=== PATIENT | female | born 1990 | race Caucasian/White ===

== ENCOUNTER 2017-04-27 14:22 | Inpatient (IN) | payer OTHER ==
[2017-04-27] MEDS ORDERED: Acetaminophen 500 MG TAB PO PRN (14:26)
[2017-04-27] MEDS ORDERED: Promethazine HCl 25 MG/ML VIAL IM PRN (14:26)
[2017-04-27] MEDS ORDERED: Ondansetron HCl/PF 4 MG/2 ML Vial IVP PRN (14:26)
[2017-04-27] MEDS ORDERED: Albuterol Sulfate 2.5 mg/3 ml Neb NEB PRN (14:44)
[2017-04-27 14:56] LABS: Hematocrit 41.1 % (36.0-47.0); Mean Platelet Volume 6.8 fL (7.4-10.4); Red Blood Cell (RBC) Count 4.15 mill/uL (4.20-5.40)
[2017-04-27 15:11] VITALS: BMI 36.4
--- NOTE | 2017-04-27 15:21 | ULT ---
ULTRASOUND BIOPHYSICAL PROFILE: HISTORY: History of previa, bleeding, growth. COMPARISON: None. FINDINGS: Real-time zapata scale and color evaluation of the gravid uterus is performed with a transabdominal ap proach. Single viable intrauterine . heart rate documented at 149 b.p.m. Amniotic fluid ind ex is 8 cm. The score for biophysical profile is 2 for tone, 2 for breathing, 2 for move ments, and 2 for amniotic fluid. position is breech and the placenta is anterior. The tip of the placenta is separate from the cervix. IMPRESSION: 1. Biophysical profile score of 8/8. 2. Amniotic fluid index 8 cm, lower limits of normal. POS: [facility]
[2017-04-27] MEDS ORDERED: FLU VACC QS2017-18 36 mo. & older 0.5 ML SYRINGE IM ONE (16:15)
[2017-04-27] MEDS: Lactated Ringer's 1,000 ML IV SCH (16:25)
--- NOTE | 2017-04-27 17:03 | PDOC.LDHP ---
Labor and Delivery H&P Chief complaint: other (bleeding) HPI: 26 y/o at 27w2d, patient of Dr. Chang, transferred from [facility] with vaginal bleeding. Patient reports that she soaked a pad and came in for evaluation. She had a known marginal previa but was noted to be resolved on recent ultrasound. Is having some cramping with her bleeding. Bleeding has decreased since her arrival. Has a complicated medical history and received Celestone at 24 weeks. Was scheduled to receive second round this week. Denies LOF or decreased FM. ROS neg for HEENT, CV, pulm, GI, , neuro, psych, skin, musculoskeletal, or constitutional symptoms other than mentioned above. OB History Details: 2 prior c/s. Most recent done at 33 weeks for PPROM. Current complications: other (see PMHx) Past Medical History: 1. Systemic Lupus Erythematosis (followed by Dr. Borrego - rheumatology) 2. Ideopathic pulmonary fibrosis (followed by Dr. Galvan - Pulmonology); 30% lung capacity 3. Asthma 4. Depression, hx depression Previous surgical history: low tranverse CS (x2), other (lung biopsy) Allergies/Adverse Reactions: Allergies Allergy/AdvReac Type Severity Reaction Status Date / Time No Known Allergies Allergy Unverified 04/27/17 14:40 Social history: none - Physical Exam Vital signs reviewed and normal: yes Abnormal vital signs: mild tachypnea General: NAD, resting Heart: RRR Lungs: CTAB Abdomen: gravid Extremeties: no edema FHT: category 1 (150s, mod variability, + accels, no decels) [place] contractions every: None - Vaginal Exam cm dilated: 0 (Per Dr. Irving) - OB Labs Blood type: A RH: positive RPR: negative HEPSAg: negative - Assessment 26 y/o at 27w2d with complicated medical history and vaginal bleeding. US shows breech fetus with anterior placenta, no previa. Normal growth and GEORGE 8cm. - Plan Plan: admit to L&D -: Will monitor with pad counts and continue home medications. Repeat steroids ordered. If stable, can d/c home tomorrow. T&S ordered.
[2017-04-27] MEDS: Betamet Acet/Betamet Na Ph 30 MG/5 ML VIAL IM SCH (17:12)
[2017-04-27] MEDS: Hydroxychloroquine Sulfate 200 MG TAB PO SCH (17:18)
[2017-04-27] MEDS: predniSONE 20 MG TAB PO SCH (17:18)
[2017-04-27] MEDS: azaTHIOprine 50 MG TAB PO SCH (17:21)
[2017-04-28] MEDS: Lactated Ringer's 1,000 ML IV SCH (01:00)
[2017-04-28 07:50] VITALS: TEMP 98.6
[2017-04-28] MEDS ORDERED: Prenatal Vitamin 1 TAB PO SCH (09:00)
--- NOTE | 2017-04-28 09:03 | PDOC.EVN ---
Event Note - Event Note Event Note: Pt seen at 0951 S: positive FM, minimal old spotting this AM on pad, cramping less O: Vital Signs (12 hours) Temp Pulse Resp Pulse Ox 04/28/17 07:42 98.6 F 91 32 H 99 Weight Weight 226 lb Laboratory Results - last 24 hr 04/27/17 04/27/17 04/27/17 14:50 14:50 14:50 WBC 11.0 H RBC 4.15 L Hgb 13.6 Hct 41.1 MCV 99.1 H MCH 32.8 H MCHC 33.0 RDW 14.4 Plt Count 193 MPV 6.8 L Neutrophils % Lymphocytes % Monocytes % Eosinophils % Basophils % Neutrophils # Lymphocytes # Monocytes # Eosinophils # Basophils # Fibrinogen Syphilis IgG/IgM Ab Non-Reactive Hep Bs Antigen Non-Reactive Blood Type Antibody Screen Mother's Rh Status KB % Cells KB Cell Volume 04/27/17 04/28/17 04/28/17 14:50 10:36 10:36 WBC 10.4 RBC 3.96 L Hgb 12.8 Hct 39.3 MCV 99.3 H MCH 32.3 H MCHC 32.5 RDW 14.1 Plt Count 200 MPV 7.0 L Neutrophils % 88.0 H Lymphocytes % 7.9 L Monocytes % 3.8 Eosinophils % 0.1 Basophils % 0.1 Neutrophils # 9.1 H Lymphocytes # 0.8 L Monocytes # 0.4 Eosinophils # 0.0 Basophils # 0.0 Fibrinogen 382 Syphilis IgG/IgM Ab Hep Bs Antigen Blood Type A POSITIVE Antibody Screen NEGATIVE Mother's Rh Status KB % Cells KB Cell Volume 04/28/17 10:36 WBC RBC Hgb Hct MCV MCH MCHC RDW Plt Count MPV Neutrophils % Lymphocytes % Monocytes % Eosinophils % Basophils % Neutrophils # Lymphocytes # Monocytes # Eosinophils # Basophils # Fibrinogen Syphilis IgG/IgM Ab Hep Bs Antigen Blood Type Antibody Screen Mother's Rh Status Rh Positive KB % Cells 0.00 KB Cell Volume 0 Gen. NAD Resp. on O2, coarse BS but CTA bilat CV. RRR no W, G< R OB. * 140's reactive to 150s with frequent mild variable decels * toco quiet to rare ctx A/P: 1. 27.3 week IUP with reactive NST but frequent mild variable decels, BPP 02/11 yesterday 2. Vaginal bleeding, hx of resolved previa this as of sono 4 weeks ago and confirmed yesterday * KB stain ordered * repeat CBC and check fibrinogen today * f/u sono to further eval placenta - suspect abruption 3. Decreased GEORGE 4. Lupus with related pulmonary fibrosis requiring O2 5. Prior CD. Planned repeat with risk reducing BTL
[2017-04-28 10:55] LABS: #Lymphocytes 0.8 thou/uL (1.20-3.40); #Monocytes 0.4 thou/uL (0.11-0.59); #Neutrophils 9.1 thou/uL (1.40-6.50); %Basophils 0.1 % (0.0-1.0); %Eosinophils 0.1 % (0.0-10.0); %Lymphocytes 7.9 % (21.0-51.0); %Monocytes 3.8 % (0.0-10.0); Hematocrit 39.3 % (36.0-47.0); Red Blood Cell (RBC) Count 3.96 mill/uL (4.20-5.40); White Blood Cell (WBC) Count 10.4 thou/uL (4.8-10.8)
[2017-04-28] MEDS: azaTHIOprine 50 MG TAB PO SCH (11:46)
[2017-04-28] MEDS: Hydroxychloroquine Sulfate 200 MG TAB PO SCH (11:47)
[2017-04-28] MEDS: predniSONE 20 MG TAB PO SCH (11:47)
--- NOTE | 2017-04-28 13:53 | ULT ---
ULTRASOUND OBSTETRICAL COMPLETE: HISTORY: A 26-year-old female in second trimester of , with vaginal bleeding. Rule out sawyer cental abruption. FINDINGS: number: Gutierrez. lie: Breech. Maternal cervix: 4 cm long and closed. Placenta: Anterior. No placenta previa. No placental abruption. Amniotic fluid volume: 16 cm. heart rate: 143 BPM. anatomy was not evaluated in detail. A four chamber heart is visualized. biometry: Head circumference (HC): 25.0 cm 27w 1d Biparietal diameter (BPD): 6.5 cm 26w 2d Abdominal circumference (AC): 23.0 cm 27w 2d Femur length (FL): 5.1 cm 27w 1d Average ultrasound age (AUA): 27w 0d Estimated date of confinement (EDC): 07/28/2017 Last menstrual period (LMP): 10/18/2016 EDC by LMP: 07/25/2017 Estimated weight (EFW): 1041 g, +/- 154 g (2 lbs 5 oz, +/- 5 oz). IMPRESSION: 1. Live second trimester intrauterine gestation. 2. Estimated gestational age of 27 weeks, 0 days. 3. Breech lie. 4. No placenta previa or placental abruption. 5. anatomy not evaluated in detail. MAGY Main POS: JUAN MIGUEL
[2017-04-28] MEDS: Betamet Acet/Betamet Na Ph 30 MG/5 ML VIAL IM SCH (17:19)
[2017-04-28 17:24] VITALS: BP 135/91
== END 2017-04-28 21:40 | disposition home health service (06) | DRG 781 ==
LOC: L&D/OP 14:22 → L&D 15:31
PROVIDERS: ADMIT Obstetrics & Gynecology; ATTEND Obstetrics & Gynecology
DX: O46.92 Antepartum hemorrhage, unspecified, second trimester (principal); O99.342 Other mental disorders complicating pregnancy, second trimester; M32.9 Systemic lupus erythematosus, unspecified; J84.112 Idiopathic pulmonary fibrosis; O99.89 Other specified diseases and conditions complicating pregnancy, childbirth and the puerperium; Z3A.27 27 weeks gestation of pregnancy; F32.9 Major depressive disorder, single episode, unspecified; J45.909 Unspecified asthma, uncomplicated; O99.512 Diseases of the respiratory system complicating pregnancy, second trimester
CPT/HCPCS: 36415; 76805; 76819; 85025; 85027; 85384; 85460; 86780; 86850; 86900; 86901; 87340; J0595; J0702; J7500; J7506

== ENCOUNTER 2017-04-30 11:47 | Inpatient (IN) | payer OTHER ==
[2017-04-30 12:15] VITALS: BMI 35.3
[2017-04-30 12:45] LABS: Hematocrit 47.4 % (36.0-47.0); Mean Platelet Volume 7.3 fL (7.4-10.4); Red Blood Cell (RBC) Count 4.92 mill/uL (4.20-5.40); White Blood Cell (WBC) Count 17.9 thou/uL (4.8-10.8)
[2017-04-30 13:01] LABS: ALT (SGPT) 15 U/L (8-55); AST (SGOT) 11 U/L (5-34); Alkaline Phosphatase 47 U/L (40-150); Anion Gap 14 mmol/L (10-20); BUN (Urea Nitrogen) 7 mg/dL (7.0-18.7); Bilirubin, Total 0.7 mg/dL (0.2-1.2); Calc. Creatinine Clearance 223 mL/min (70-130); Calcium 9.4 mg/dL (7.8-10.44); Carbon Dioxide 21 mmol/L (22-29); Chloride 107 mmol/L (98-107); Estimated GFR-MDRD Greater than 90; Globulin 3.9 g/dL (2.4-3.5); Protein, Total 7.5 g/dL (6.0-8.3)
[2017-04-30] MEDS ORDERED: Ondansetron HCl/PF 4 MG/2 ML Vial IVP PRN ×3 (13:32→15:33)
[2017-04-30] MEDS ORDERED: Promethazine HCl 25 MG/ML VIAL IM PRN (13:32)
[2017-04-30] MEDS ORDERED: Bicitra 30 ML UDCUP PO SCH (13:45)
[2017-04-30] MEDS ORDERED: CEFAZOLIN/Water 2 GM/20 ML SYRINGE SLOW IVP SCH (13:45)
[2017-04-30] MEDS ORDERED: PHENYLEPHRINE-NS 100 MCG/ML 10 ML SYRINGE ONE (13:46)
[2017-04-30] MEDS ORDERED: Oxytocin 10 UNITS/ML VIAL ONE (13:46)
[2017-04-30] MEDS ORDERED: Ondansetron HCl/PF 4 MG/2 ML Vial ONE (13:46)
[2017-04-30] MEDS ORDERED: Fentanyl 100 MCG/2 ML VIAL ONE (13:46)
[2017-04-30] MEDS ORDERED: Morphine PF 1 MG/ML SYR ONE (13:46)
[2017-04-30] MEDS ORDERED: Succinylcholine Chloride 20 MG/ML 10 ml SYRINGE FS ONE (13:50)
[2017-04-30] MEDS ORDERED: Diprivan 20 ML ONE (13:50)
--- NOTE | 2017-04-30 13:51 | PRG ---
DATE OF SERVICE: 04/30/2017 LOCATION: Labor and Delivery in bed 7. TIME: 1323 hours. TIME OF EVALUATION: 1310 hours. In brief, I evaluated this patient at bedside. Neonatology, Anesthesiology, and Pulmonology are all aware of the patient's arrival. I performed a cervical examination on this patient and find her to be 1 cm dilated, 80% effaced, -2 station. There was some concern whether she had some leakage since arrival, but I performed a Valsalva examination and I see no leakage of fluid through the vagina. This is with vaginal wall splinting and Valsalva maneuvers. A speculum was not used as I cannot lie the patient back due to her respiratory condition. During Valsalva, the patient leaked urine through the urethra, so I suspect that some of the leakage that she felt was from her bladder. As she states that she also has a full bladder. She is having some contractions and is notably uncomfortable. I have requested that the nurses reach out to Dr. Chang for an update as the patient is romero with a prior history of two C -sections. He is also aware. ROGERIO
--- NOTE | 2017-04-30 15:08 | HP ---
DATE OF ADMISSION: 04/30/2017 TIME OF EVALUATION: 12:45. LOCATION: Labor and Delivery. This is a patient of Dr. Chang. REASON FOR ADMISSION: Pulmonary fibrosis with dyspnea due to systemic lupus erythematosus, 27 weeks . HISTORY OF PRESENT ILLNESS: In brief, this is a 26-year-old who has no known systemic lupus erythematosus with resulting pulmonary fibrosis. She is on daily supplemental oxygen by nasal cannula. Dr. Mariano Galvan with Pulmonary has been following the patient and is aware of her arrival today in Labor and Delivery. Earlier this morning, I received a phone call from Dr. Chang who had evaluated the patient in the office and sending the patient over for possible contractions and increasing dyspnea. She has also received steroids for lung maturity earlier in this . She has a prior section as well. She was recently in Labor and Delivery on 04/27/2017 , at which time she was evaluated by Dr. Brissa Galvan. PAST MEDICAL HISTORY: Includes: 1. Systemic lupus erythematosus. She has Dr. Borrego who follows her for Rheumatology. She also has idiopathic pulmonary fibrosis, likely from her lupus condition. 2. She also has a history of asthma. 3. She has a history of depression and history of depression as well. She is on termite control servicer oral steroids. PAST SURGICAL HISTORY: Includes 2 prior low transverse sections and a lung biopsy in the past. ALLERGIES: She has no recent drug allergies. SOCIAL HISTORY: Otherwise, negative. PHYSICAL EXAMINATION: Pending as the patient just arrived to Labor and Delivery. It is important to note that she was checked by Dr. Chang earlier today in the clinic setting. ASSESSMENT: This is a 26-year-old G3, P1-1-0-2 at 27 weeks and 5 days being sent to Labor and Delivery for irregular contractions. She did have an ultrasound recently, which showed breech presentation with an anterior placenta, but no previa. She had normal growth and a normal amniotic fluid index as noted by Dr. Galvan's on 04/27/2017. PLAN: 1. Anesthesia is already aware of the patient's arrival in case we made to proceed for section and for airway management. 2. Dr. Mariano Galvan has also been informed of the patient's arrival by me and is aware of her status. 3. Neonatology, Dr. Angeline Grajeda is also aware. 4. Steroids have already been given. 5. Dr. Chang will be the primary physician managing the patient. 6. Expected management for now. MTDD
[2017-04-30] MEDS ORDERED: Naloxone HCl 0.4 mg/ml Vial IVP PRN ×2 (15:12)
[2017-04-30] MEDS ORDERED: Naloxone HCl 0.4 mg/ml Vial IV PRN (15:12)
[2017-04-30] MEDS ORDERED: Eucerin (Mineral Oil/Petrolatum,White) 30 gm Jar TOP PRN (15:12)
[2017-04-30] MEDS ORDERED: diphenhydrAMINE 50 MG/ML VIAL IVP PRN ×2 (15:12→16:53)
[2017-04-30] MEDS ORDERED: Communication Order-Pharmacy FS SCH (15:15)
[2017-04-30] MEDS ORDERED: LR w/ Pitocin 40 units/1000 ML BAG IV SCH (15:33)
[2017-04-30] MEDS ORDERED: diphenhydrAMINE 25 MG CAP PO PRN (15:33)
[2017-04-30] MEDS ORDERED: Lanolin Ointment 7 GM TUBE TOP PRN (15:33)
[2017-04-30] MEDS ORDERED: Labetalol HCl 100 MG/20 ML VIAL SLOW IVP PRN (16:52)
[2017-04-30] MEDS ORDERED: Acetaminophen 1,000 MG in Premix Bag 1 BAG IVPB SCH ×2 (17:15→18:00)
--- NOTE | 2017-04-30 17:41 | OP ---
DATE OF PROCEDURE: 04/30/2017 TIME: 1445 hours. TIME OF THE : Roughly 1415 hours. LOCATION: Labor and Delivery. BREAKER TENDER NOTE In brief, I was asked by Dr. Chang to assist with a repeat in this patient, who is 27 wee ks and 5 days, known history of lupus with interstitial pulmonary fibrosis. The diagnosis was early labor at 27 weeks and 5 days. I assisted with the repeat low transverse section without c omplication. The skin was stapled closed and was hemostatic. For full details on the surgical procedure, please see the full operative note by Dr. Chang, who is the primary surgeon. PREOPERATIVE DIAGNOSES: 1. Prior x2. 2. 27-week to 28-week . 3. Early labor. POSTOPERATIVE DIAGNOSES: 1. Prior x2. 2. 27-week to 28-week . 3. Early labor. PROCEDURE PERFORMED: 1. Primary low transverse section via repeat Pfannenstiel skin incision. 2. Bilateral risk reducing salpingectomy (approval granted).
--- NOTE | 2017-04-30 18:03 | PDOC.APC ---
Antepartum Consult MELISSA MOSES is a 26 year old female at [27 5/7] gestational weeks. I was asked by Dr Shaikh to speak with the patient regarding anticipated course for a baby born at 27 weeks. I spoke with the patient and father. I outlined that the timing and mode of delivery is a decision that will be made by the OB service. Once the patient is taken for delivery, the resuscitation team will be present. The initial focus will be on respiratory stabilization and may include minimal assistance, CPAP or intubation with surfactant administration. I discussed that the patient will need to be admitted to the NICU in an isolette due to temperature instability associated with prematurity. We will then obtain IV access via umbilical lines as babies are at risk for hypoglycemia and will need slow increase in feeding. We discussed that babies born are at higher risk for feeding intolerance, infection and jaundice. I discussed that breastmilk is the best nutrition for babies and she is strongly encouraged to pump after delivery. Mother does not plan to breastfeed and consented to the use of donor milk. I explained that the duration of hospital stay will be determined on the clinical course of the baby. I outlined the milestones that needed to be achieved to ensure safe discharge home. They had the opportunity to ask questions. I encouraged them to contact our service again if additional questions arise. Labs: Ante Labs Blood Type A POSITIVE 04/30/17 12:20 Hep Bs Antigen Non-Reactive S/CO (NonReactive) 04/30/17 12:20
[2017-04-30] MEDS: Hydrocortisone Sod Succ/PF 100 mg/2 ml Vial IVP SCH ×2 (18:14→22:59)
--- NOTE | 2017-04-30 19:29 | CON ---
DATE OF CONSULTATION: 04/30/2017 SERVICE: Pulmonary Medicine. REASON FOR CONSULTATION: Interstitial lung disease. HISTORY OF PRESENT ILLNESS: The patient is a 26-year-old white female with past medical history sig nificant for systemic lupus erythematosus, complicated by interstitial lung disease progressing to p ulmonary fibrosis. She has very poor lung function. In this setting, she ended up getting . She came in at 27 weeks, in labor. The decision was made to deliver her via . She had increasing difficulty breathing as the gestation progress. She currently denies any fevers, chills, nausea, vomiting or diarrhea. After the epidural was in place, this is when I saw her. At that time, she was breathing much more comfortably. PAST MEDICAL HISTORY: 1. Systemic lupus erythematosus. 2. Interstitial lung disease secondary to #1. 3. Asthma. 4. Major depressive disorder. PAST SURGICAL HISTORY: 1. section x2. 2. Open lung biopsy. ALLERGIES: No known drug allergies. MEDICATIONS: List of her inpatient medications were reviewed. Multiple updates were made. SOCIAL HISTORY: Negative for any alcohol, tobacco or illicit drug use. She has no exposure to chem icals, dust asbestos or tuberculosis. FAMILY HISTORY: Noncontributory. REVIEW OF SYSTEMS: General, head, ears, eyes, nose, throat, cardiovascular, respiratory, GI, , mu sculoskeletal, neurologic and skin is negative except as mentioned in the HPI. PHYSICAL EXAMINATION: VITAL SIGNS: Afebrile, pulse 86, blood pressure 143/94, respirations 18, saturation 100% on 2 L jakob al cannula. GENERAL: Patient is awake, alert, in no apparent distress. LUNGS: Decent air entry. Crackles are present throughout. There is no prolonged expiratory phase or wheezing. HEART: Normal rate, regular. ABDOMEN: Soft, nontender, nondistended, bowel sounds positive. MUSCULOSKELETAL: No cyanosis or clubbing. No pitting in the bilateral lower extremities. NEUROLOGIC: Grossly nonfocal. LABORATORY: WBC 17.9, hemoglobin 15.3, platelets 248,000. Basic metabolic profile, liver function studies are essentially unremarkable. Syphilis and hepatitis B surface antigen are nonreactive. ASSESSMENT: 1. Chronic hypoxic respiratory failure. 2. labor. 3. Interstitial lung disease secondary to systemic lupus erythematosus. 4. section, postop day #0. PLAN: Pulmonary Critical Care will continue to follow. After the surgery, she will be placed in e ICU. We will go ahead and initiate her on stress doses of steroids. Azathioprine will be continu ed in the inpatient setting. We will provide her with p.r.n. DuoNeb if necessary. If she remains s table into tomorrow morning, she can be considered for transition to the floor and/or discharge per routine post section management.
[2017-04-30] MEDS: azaTHIOprine 50 MG TAB PO SCH (19:53)
--- NOTE | 2017-04-30 20:09 | OP ---
DATE OF PROCEDURE: 04/30/2017 PREOPERATIVE DIAGNOSES: labor, prior section x2 for risk reducing salpingectomy with lupus, restrictive pulmonary disease, and 27-28 weeks gestation with caden breech presentation. POSTOPERATIVE DIAGNOSIS: labor, prior section x2 for risk reducing salpingectomy with lupus, restrictive pulmonary disease, and 27-28 weeks gestation with caden breech presentation, small placental abruption. PROCEDURE PERFORMED: Repeat low transverse section without extension with bilateral salpingectomy. SURGEON: Renard Chang M.D. - [facility] LABOR RELATIONS OR PERSONNEL NEGOTIATOR: Humphrey Shaikh M.D. - Ob Hospitalist ANESTHESIA: Subarachnoid block, Ignacio Marin MD BAKira MEDICATIONS: Two grams Ancef preincision. DVT PROPHYLAXIS: SCDs. ESTIMATED BLOOD LOSS: 700 mL DRAINS: Jean to gravity, clear urine at the end of the procedure. SPECIMENS REMOVED: Placenta and bilateral fallopian tubes. OPERATIVE FINDINGS: 1. Vigorous female infant 950 grams, Apgars pending, delivered at 15:15. 2. Low transverse hysterotomy without extension with very thin lower uterine segment, status post recent and chronic steroids as well as lupus. 3. Bilateral salpingectomy was performed without complication. 4. Hemostasis with clear urine, counts correct at the end of the procedure. DISPOSITION: Would be to ICU, not intubated for critical care with Dr. Mariano Galvan, DESCRIPTION OF OPERATIVE PROCEDURE: After obtaining proper informed consent, the patient was taken to the operating room where subarachnoid block was achieved without difficulty. She received antibiotics and DVT prophylaxis. She was prepped and draped in the usual manner. Previous Pfannenstiel incision was identified, incised sharply and carried down the fascia in the midline. Fascia was noted to be quite thin consistent with the patient's steroids as well as lupus. Rectus was dissected off sharply superiorly and inferiorly. Peritoneum entered bluntly, taking care to avoid trauma to the underlying viscera. Minesh O retractor placed inside. Previous low transverse hysterotomy incision level was identified and was well-developed. Low transverse hysterotomy incision made and extended superiorly and laterally with finger fractionization. Clear fluid noted. Infant was noted to be footling breech presentation and was delivered without extension of the head, was placed in the surgical bag that was present on the drape to maintain warmth and was allowed for placental delayed cord clamping for approximately 60 seconds. We then clamped and cut and handed off to Neonatology Team in attendance. Cord blood sample obtained. Placenta delivered manually and sent for pathology. Hysterotomy was noted without extension and closed using a running locking #1 Monocryl suture. After 1 layer of closure, it was noted to have some tearing in the middle due to the thinness of the lower uterine segment and incomplete healing from previous that was closed together from just above the level of the vesicouterine peritoneal fold up to the level of the hysterotomy using a running continuous Monocryl suture perpendicular to the previous hysterotomy closure line. Bladder did not appear to be involved in this area and the urine was noted to be continued clear. Patient's right fallopian tube was isolated. Window created in the mesosalpinx, clamps placed across both completely excising the tube and tying off with an 0 chromic suture. Good hemostasis was noted. Identical procedure was carried out on the patient's left. Reinspection of the hysterotomy area revealed it to be dry. FloSeal was applied after irrigating out the gutters bilaterally and the Minesh O retractor removed. Rectus is inspected and noted to be dry. Fascia was reapproximated taking very wide bites because of the patient's steroid use as well as lupus, reapproximating the fascia using an 0 PDS suture. Subcutaneous tissue was irrigated and rendered hemostatic with Bovie cautery, reapproximated the skin with georgiana after placing plain gut into the deep subcutaneous. Counts were correct x2 and the patient was taken to the ICU for care by Dr. Mariano Galvan. ROGERIO
[2017-04-30] MEDS ORDERED: FLU VACC QS2017-18 36 mo. & older 0.5 ML SYRINGE IM ONE (21:00)
[2017-04-30] MEDS: Acetaminophen 500 MG TAB PO SCH (22:59)
[2017-05-01] MEDS ORDERED: Meperidine HCl/PF 25 MG/ML VIAL IM PRN (03:15)
[2017-05-01] MEDS ORDERED: HYDROcodone/Acetaminophen 5/325 mg Tablet PO PRN (03:15)
[2017-05-01] MEDS: Acetaminophen 500 MG TAB PO SCH ×3 (05:55→16:37)
[2017-05-01] MEDS: Hydrocortisone Sod Succ/PF 100 mg/2 ml Vial IVP SCH (06:07)
[2017-05-01 07:05] LABS: #Lymphocytes 1.1 thou/uL (1.20-3.40); #Monocytes 0.7 thou/uL (0.11-0.59); #Neutrophils 11.4 thou/uL (1.40-6.50); %Basophils 0.1 % (0.0-1.0); %Lymphocytes 8.5 % (21.0-51.0); %Monocytes 4.9 % (0.0-10.0); Hematocrit 39.4 % (36.0-47.0); Mean Platelet Volume 7.1 fL (7.4-10.4); Red Blood Cell (RBC) Count 3.99 mill/uL (4.20-5.40); White Blood Cell (WBC) Count 13.2 thou/uL (4.8-10.8)
[2017-05-01] MEDS: azaTHIOprine 50 MG TAB PO SCH ×2 (08:01→21:17)
[2017-05-01] MEDS: Prenatal Vitamin 1 TAB PO SCH (08:02)
--- NOTE | 2017-05-01 08:09 | PDOC.PP ---
Post Progress Note Post Day #: 1 PO intake tolerated: yes Flatus: yes Ambulation: yes Vital Signs (12 hours) Temp Pulse Resp 05/01/17 05:00 98.5 F 05/01/17 04:00 98.0 F 104 H 24 H 05/01/17 00:00 98.0 F 104 H 24 H Weight Weight 219 lb Most Recent Monitor Data Heart Rate from ECG 82 NIBP 135/92 NIBP BP-Mean 110 Respiration from ECG 33 SpO2 99 - Physical Examination General: NAD Cardiovascular: RRR Deviation from normal: pt on nc o2. doing well. mgmt of icu care by reagan Abdominal: + bowel sounds, lochia, no distention, appropriately TTP Extremities: negative homans (B) Skin: CS incision dry & intact, no rash Neurological: no gross focal deficits Psychiatric: A&Ox3, normal affect Result Diagrams: 05/01/17 06:39 04/30/17 12:20 Additional Labs: Post Labs Blood Type A POSITIVE 04/30/17 12:20 Hep Bs Antigen Non-Reactive S/CO (NonReactive) 04/30/17 12:20 (1) Asthma Code(s): J45.909 - UNSPECIFIED ASTHMA, UNCOMPLICATED Status: Acute (2) Idiopathic pulmonary fibrosis Code(s): J84.112 - IDIOPATHIC PULMONARY FIBROSIS Status: Acute (3) Lupus (systemic lupus erythematosus) Code(s): M32.9 - SYSTEMIC LUPUS ERYTHEMATOSUS, UNSPECIFIED Status: Acute (4) Status: Acute Qualifiers: Weeks of gestation: 27 weeks Qualified Code(s): Z3A.27 - 27 weeks gestation of - Assessment/Plan doing well from a post surgical standpoint. if dr kirk happy with patients progress, anticipate transfer to regular PP unit and transition into routine post operative process of recovery. in NICU on CPAP doing well for gestational age and wt.
[2017-05-01] MEDS ORDERED: Adacel (T-DAP) 0.5 ML VIAL IM ONE (09:00)
--- NOTE | 2017-05-01 11:06 | PRG ---
DATE OF SERVICE: 05/01/2017 SERVICE: Pulmonary Medicine. INTERVAL HISTORY: The patient is doing fantastic from a cardiovascular and respiratory standpoint. She is breathing comfortably. She is on her home dose of oxygen and her sats are fantastic at 99%. This morning she got up out of bed and walked around with her nurse at this point, very well too. As such, I think she is ready for transition out of the ICU. She did not have any events overnight . Her blood pressures have been stable. PHYSICAL EXAMINATION: VITAL SIGNS: Afebrile, pulse 77, blood pressure 132/92, respirations 29, and saturation 98% on room air. GENERAL: The patient is awake, alert, no apparent distress. LUNGS: Good air entry with no prolonged expiratory phase. No wheezing is present. Crackles are pr esent throughout. HEART: Normal rate, regular. ABDOMEN: Soft. Minimal tenderness to palpation throughout without any rebound or guarding. Bowel sounds are present. MUSCULOSKELETAL: No cyanosis or clubbing. There is no pitting in the bilateral lower extremities. GENITOURINARY: No Jean. NEUROLOGIC: Grossly nonfocal. LABORATORY DATA: WBC down trending at 13.2, hemoglobin 13.0, platelets 211,000. Neutrophil count i s slightly elevated. ASSESSMENT: 1. Chronic hypoxic respiratory failure. 2. Interstitial lung disease, secondary to systemic lupus erythematosus. 3. section, postoperative day #1. PLAN: I will stop the stress doses of steroids and start her back on her home dose of prednisone. We will continue azathioprine. I would like for her to see me in clinic as previously directed with frequent pulmonary function studies in 2-3 weeks. This has already been arranged. We will continu e our DuoNebs if needed. Pulmonary will continue to follow while she remains inhouse for the time franca daly.
[2017-05-01] MEDS: HYDROcodone/Acetaminophen 5/325 mg Tablet PO PRN ×3 (13:06→22:13)
[2017-05-01] MEDS: Simethicone Chewable 80 MG TAB PO PRN (16:48)
[2017-05-01] MEDS ORDERED: Sodium Chloride 0.9% 10 ML ONE (17:49)
[2017-05-01] MEDS ORDERED: Morphine 2 MG/ML SYRINGE SLOW IVP SCH (18:00)
[2017-05-02] MEDS: HYDROcodone/Acetaminophen 5/325 mg Tablet PO PRN (03:24)
[2017-05-02] MEDS: Acetaminophen 500 MG TAB PO SCH ×2 (03:26→06:44)
[2017-05-02 05:38] LABS: #Lymphocytes 1.7 thou/uL (1.20-3.40); #Monocytes 0.7 thou/uL (0.11-0.59); #Neutrophils 8.8 thou/uL (1.40-6.50); %Basophils 0.3 % (0.0-1.0); %Eosinophils 0.2 % (0.0-10.0); %Lymphocytes 14.8 % (21.0-51.0); %Monocytes 5.9 % (0.0-10.0); Hematocrit 39.3 % (36.0-47.0); Mean Platelet Volume 6.8 fL (7.4-10.4); Red Blood Cell (RBC) Count 4.02 mill/uL (4.20-5.40); White Blood Cell (WBC) Count 11.2 thou/uL (4.8-10.8)
[2017-05-02] MEDS ORDERED: Morphine 10 MG/ML VIAL ONE (08:50)
[2017-05-02] MEDS ORDERED: Morphine 10 MG/ML VIAL SLOW IVP PRN ×2 (08:51→09:09)
[2017-05-02] MEDS ORDERED: Sodium Chloride 0.9% 10 ML ONE ×2 (08:51→17:31)
[2017-05-02] MEDS ORDERED: HYDROcodone/Acetaminophen 7.5/325 mg Tablet PO PRN (08:53)
[2017-05-02] MEDS: predniSONE 20 MG TAB PO SCH (08:57)
[2017-05-02] MEDS: Prenatal Vitamin 1 TAB PO SCH (08:58)
[2017-05-02] MEDS: azaTHIOprine 50 MG TAB PO SCH ×2 (08:58→20:28)
[2017-05-02] MEDS: Simethicone Chewable 80 MG TAB PO PRN ×2 (09:03→20:30)
[2017-05-02] MEDS: HYDROcodone/Acetaminophen 7.5/325 mg Tablet PO PRN ×3 (09:03→20:29)
[2017-05-02] MEDS: Docusate (Surfak) 240 MG CAP PO SCH ×2 (09:09→20:28)
[2017-05-02] MEDS ORDERED: Morphine 10 MG/ML VIAL SLOW IVP SCH (09:15)
--- NOTE | 2017-05-02 09:42 | PRG ---
DATE OF SERVICE: 05/02/2017 SUBJECTIVE: The patient is postop day #2 for repeat at 28 weeks due to maternal medical c omplications, specifically lupus and restrictive pulmonary disease. Patient today is tolerating p.o . and has difficulty ambulating due to poor pain control at this time. 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 Patient denies any significant shortness of breath on her oxygen. PHYSICAL EXAMINATION: VITAL SIGNS: Blood pressure 136/94, respiratory rate of 28, pulse of 91, temperature 98.6, satting 99% on 2 liters nasal cannula. GENERAL: The patient appears to be in significant distress with tearing with her pain at this momen t. Incision is clean, dry, and intact with georgiana. No erythema or induration. She has bruising o n the superior side present. ASSESSMENT AND PLAN: The patient is a 26-year-old female with lupus and pulmonary restrictive disea se, now postop day #2, status post repeat at 28 weeks. The patient's lung status is being followed by the Pulmonary team and is on 2 liters oxygen and satting well. The patient will be man aged by Pulmonary for any further changes. Pain control, we have increased her hydrocodone to 7.5 m g 1-2 tablets p.r.n. for pain every 4 hours. We have given her 6 mg of morphine IV now, which on re evaluation, the patient reports has helped significantly. Also, we have added Plaquenil 200 mg twic e a day back to her regimen. This is something that she takes on a regular basis. I will reevaluat e the patient in 3-4 hours to see how her oral pain medications are working.
[2017-05-02] MEDS ORDERED: Hydroxychloroquine Sulfate 200 MG TAB PO SCH (11:30)
[2017-05-02] MEDS: Hydroxychloroquine Sulfate 200 MG TAB PO SCH ×2 (12:16→20:28)
[2017-05-02] MEDS ORDERED: Furosemide 20 MG/2 ML VIAL SLOW IVP SCH (16:30)
--- NOTE | 2017-05-02 17:04 | PRG ---
DATE OF SERVICE: 05/02/2017 SERVICE: Pulmonary Medicine. INTERVAL HISTORY: The patient is doing okay from a respiratory standpoint. That being said, she is having increasing work of breathing whenever she is getting around. She is also having increasing production of green phlegm. She currently denies any fevers, chills, nausea or vomiting. That pearlsharmin roque said, the cough is painful and is also very difficult to get the sputum out. As such, she is requ esting for some help in getting the sputum out. She understands that it is important to cough and w e do not want to give her anything to suppress that. PHYSICAL EXAMINATION: VITAL SIGNS: Afebrile, pulse 109, blood pressure 137/95, respirations 26, saturation 97% on 2 liter s nasal cannula. GENERAL: Patient is awake, alert, in no apparent distress. LUNGS: Decreased air entry with no prolonged expiratory phase. Rhonchi and crackles are both prese nt. No wheezing is appreciated. HEART: Tachycardic. Regular. ABDOMEN: Soft, nontender, nondistended. Bowel sounds positive. MUSCULOSKELETAL: No cyanosis or clubbing. No pitting in the bilateral lower extremities. NEUROLOGIC: Grossly nonfocal. LABORATORY DATA: WBC is down trending to 11.2, hemoglobin 12.7, platelets 178,000. Neutrophil coun t is also settling down. ASSESSMENT: 1. Chronic hypoxic respiratory failure. 2. Interstitial lung disease, secondary to systemic lupus erythematosus with acute exacerbation. 3. section, postop day #2. PLAN: We will give her one single dose of Lasix as she did get a significant amount of fluids yeste rday. We will initiate her on levofloxacin. This will be 750 mg p.o. daily and limited to a 5-7 da y course. It should be continued into the outpatient setting. We will also give her Mucinex twice daily to see if we can help her expectorate some of the thick sputum. Pulmonary will continue to fo llow while the patient remains in house, but from a purely respiratory perspective, she is stable fo r discharge from the hospital.
[2017-05-02] MEDS: guaiFENesin ER 600 MG TAB PO SCH (20:29)
[2017-05-03] MEDS: HYDROcodone/Acetaminophen 7.5/325 mg Tablet PO PRN ×6 (01:00→21:26)
[2017-05-03] MEDS: predniSONE 20 MG TAB PO SCH (08:14)
[2017-05-03] MEDS: Hydroxychloroquine Sulfate 200 MG TAB PO SCH ×2 (09:12→21:26)
[2017-05-03] MEDS: Prenatal Vitamin 1 TAB PO SCH (09:13)
[2017-05-03] MEDS: Docusate (Surfak) 240 MG CAP PO SCH ×2 (09:13→21:24)
[2017-05-03] MEDS: azaTHIOprine 50 MG TAB PO SCH ×2 (09:14→21:24)
[2017-05-03] MEDS: guaiFENesin ER 600 MG TAB PO SCH ×2 (09:53→21:25)
--- NOTE | 2017-05-03 11:55 | PRG ---
DATE OF SERVICE: 05/03/2017 LOCATION: 3 [facility], patient in room 335. POSTOP DAY #3 In brief, this is a patient with known systemic lupus erythematosus with pulmonary complications. S he underwent a repeat at 27 weeks on 04/30/2017 due to increasing dyspnea from her interst itial pneumonitis, and active labor. Initially, she went to the ICU for observation postop and is now on the routine floor. Per Pulmonary, she has been started on Levaquin as prop hylactic medication to prevent any pulmonary superinfection. I evaluated the patient on 05/03/2017, postop day #3. SUBJECTIVE: No new issues. OBJECTIVE: On vital signs assessment, patient's temperature ranges from 97.9-98.2. Pulse is slight ly elevated at 100 to high value of 110 on 05/03/2017 at 05:00. Respirations are 24, O2 sats 99% -1 00%. This is on supplemental oxygen. Blood pressure ranges from 122/83-134/97. On laboratory asse ssment, the patient's last hematocrit value was stable at 39.3. Patient's pathology specimen from is still pending with no report available. For wound closure, the patient's sect ion wound was closed with georgiana after placing a plain gut suture into the deep subcutaneous tissue s. PHYSICAL EXAMINATION: No evidence of acute postop complication or wound issues. ASSESSMENT: This is a patient who is now postoperative #3, status post repeat due to acti ve labor at 27 weeks, whose medical history is complicated by systemic lupus erythematosus a nd pulmonary compromise. PLAN: 1. Pulmonary has been following the patient and notes provided in the chart, last dated 05/02/2017. 2. Continue Levaquin at 750 mg 1 p.o. q. day, prophylactic medication/antibiotics for prevention of pulmonary superinfection. 3. Although, she is postop day #3, we will keep patient until postop day #4 as a child is still in the intensive care nursery and as patient was on chronic steroids, we will continue to evaluate for any wound complications in house. 4. Ambulate and regular diet as tolerated. 5. No evidence of respiratory hypoxia at this time. 6. The patient will eventually be discharged home on Levaquin to continue an additional 5 days as a n outpatient.
[2017-05-04] MEDS: HYDROcodone/Acetaminophen 7.5/325 mg Tablet PO PRN ×5 (01:04→17:42)
[2017-05-04 07:55] VITALS: TEMP 98.2
[2017-05-04] MEDS: Hydroxychloroquine Sulfate 200 MG TAB PO SCH (09:28)
[2017-05-04] MEDS: Prenatal Vitamin 1 TAB PO SCH (09:28)
[2017-05-04] MEDS: Docusate (Surfak) 240 MG CAP PO SCH (09:28)
[2017-05-04] MEDS: guaiFENesin ER 600 MG TAB PO SCH (09:29)
[2017-05-04] MEDS: azaTHIOprine 50 MG TAB PO SCH (09:29)
[2017-05-04] MEDS: predniSONE 20 MG TAB PO SCH (09:30)
--- NOTE | 2017-05-04 12:31 | DIS ---
DATE OF ADMISSION: 04/30/2017 DATE OF DISCHARGE: 05/04/2017 LOCATION: [address] [place] [address]. ROOM: 333. PRINCIPAL DIAGNOSES: 1. Systemic lupus erythematosus. 2. Interstitial fibrosis. 3. A 27-week . 4. labor. SERVICES CONSULTED: 1. Anesthesia. 2. Neonatology. 3. Pulmonary/Critical Care. HOSPITAL COURSE: In brief, this is a 26-year-old G3, P2, prior section patient, who was se eing Dr. Chang for . She has a known systemic lupus erythematosus and was currently 27 we eks . She has respiratory compromise from her systemic lupus and is on long-term steroids. She was sent on date of admission from the office by Dr. Chang for increasing dyspnea and contract ions. On labor and delivery assessment, it was found that she was having contractions and a diagnos is was made of early labor. Due to her respiratory compromise, prior steroid administration to the child, the decision was made to proceed with repeat after multidisciplinary team a ssessment. For full details, please turn to that operative dictation dated that date. I evaluated the patient on both postop day #3 and #4, and found her to be clinically stable. On postoperative d ay #4, dated 05/04/2017, the decision was made to discharge her home at 12:00 noon. There was no ev idence of metritis or wound complication at that time. Incision was clean, dry, and intact and ther e was some superficial ecchymosis (bruising) caused by the Minesh retractor on the incision, but thi s was not expanding. This was nontender or tense. At Dr. Mariano Galvan's request, she was given L evaquin 500 mg p.o. daily to prevent pulmonary superinfection. We will continue her Levaquin as an outpatient once discharged for an additional 5 days. As she was stable for discharge and tolerating a regular diet, without evidence of respiratory compromise, she was discharged home at 10:00 a.m. ( projected) and was told to have a followup appointment in 24 hours for staple removal with Dr. Justen ayers. Pain medications were sent by Dr. Chang to her primary pharmacy. Discharge instructions were given and she voiced understanding. Pulmonology had signed off on the p atient's care as well. Once again, the decision was made to discharge her home at 12:00 noon on .
[2017-05-04 12:32] VITALS: BP 137/90
[2017-05-04] MEDS ORDERED: FLU VACC QS2017-18 36 mo. & older 0.5 ML SYRINGE IM ONE (14:15)
== END 2017-05-04 18:30 | disposition home or self-care (01) | DRG 765 ==
LOC: L&D 11:50 → CCU 15:09 → 3SW 05-01 12:26
PROVIDERS: ADMIT Obstetrics & Gynecology; ATTEND Obstetrics & Gynecology
PROC: 10D00Z1 Extraction of Products of Conception, Low, Open Approach (ICD-10-PCS; principal; 2017-04-30)
PROC: 0UB70ZZ Excision of Bilateral Fallopian Tubes, Open Approach (ICD-10-PCS; 2017-04-30)
DX: O60.12X0 Preterm labor second trimester with preterm delivery second trimester, not applicable or unspecified (principal); O45.92 Premature separation of placenta, unspecified, second trimester; J96.11 Chronic respiratory failure with hypoxia; J84.10 Pulmonary fibrosis, unspecified; O34.211 Maternal care for low transverse scar from previous cesarean delivery; O32.1XX0 Maternal care for breech presentation, not applicable or unspecified; Z3A.27 27 weeks gestation of pregnancy; Z37.0 Single live birth; M32.9 Systemic lupus erythematosus, unspecified; Z79.52 Long term (current) use of systemic steroids; J45.909 Unspecified asthma, uncomplicated
CPT/HCPCS: 36415; 80053; 85025; 85027; 86780; 86850; 86900; 86901; 87340; 88302; 88307; 90471; 90682; 90715; A4216; G0008; J0131; J1200; J1720; J1940; J2270; J2274; J2405; J2590; J2704; J3010; J7500; J7506; Q2036

== ENCOUNTER 2017-05-21 07:35 | Outpatient (CLI) | payer OTHER ==
--- NOTE | 2017-05-24 10:43 | PFT ---
PATIENT HISTORY: HEIGHT: 66 IN WEIGHT: 218 LBS SMOKER: QUIT HOW LON YEARS PACKS PER DAY: 1 PACK PER WEEK PRODUCTIVE COUGH: YES LUNG DISEASE: IDIOPATHIC PULMONARY FIBROSIS PHYSICIAN INTERPRETATION FINAL REPORT: FVC best is 1.23, FEV1 best is 1.06. There was no change with bronchodilators. Mid flow best is 1.88 liters. Total lung capacity is 26% of predicted. Diffusion was 4% and did not correct for lung volumes. IMPRESSION: This is a very severe restrictive defect with decreased diffusion. Relay Engineer: Public Health Assistant: GELY BEATTY
== END 2017-05-21 07:36 | disposition home or self-care (01) ==
LOC: CP 07:35
PROVIDERS: ATTEND Internal Medicine
DX: J45.909 Unspecified asthma, uncomplicated (principal); J84.112 Idiopathic pulmonary fibrosis
CPT/HCPCS: 94060; 94727; 94729

== ENCOUNTER 2017-09-01 11:23 | Outpatient (CLI) | payer OTHER ==
--- NOTE | 2017-09-01 14:39 | RAD ---
PA AND LATERAL CHEST X-RAY: 09/01/2017 HISTORY: Dyspnea. COMPARISON: 01/23/2017 FINDINGS: The cardiac silhouette remains stable in size. Mild increased interstitial densities are again seen within the mid lung zones bilaterally, which are similar to the prior exam. There is minimal bluntin g of each lateral costophrenic angle, which may be related to minimal pleural and parenchymal scarrin g or very tiny bilateral pleural effusions. The chest is otherwise not significantly changed from th e prior exam. There is left convex curvature of the thoracic spine, and the degree of curvature is g reater than on the prior exam, some of which is probably positional in origin. IMPRESSION: 1. Stable, mildly increased interstitial densities in the mid lung zones bilaterally. While this co uld be related to infectious or inflammatory process, this is overall similar to the prior study and may be related to mild chronic lung changes and areas of scarring. 2. Tiny bilateral pleural effusions versus pleural and parenchymal scarring. POS: [facility]
== END 2017-09-01 11:24 | disposition home or self-care (01) ==
LOC: RAD 11:23
PROVIDERS: ATTEND Internal Medicine
DX: R06.00 Dyspnea, unspecified (principal); J90 Pleural effusion, not elsewhere classified; J98.4 Other disorders of lung
CPT/HCPCS: 71046

== ENCOUNTER 2018-01-12 20:40 | Inpatient (IN) | payer OTHER, SELFPAY ==
[~2018-01-12 20:40] MED LIST: ISOVUE-370 76%-LOCM 1 ML ONE
[2018-01-12 21:16] LABS: #Basophils 0.1 thou/uL (0.0-0.2); #Eosinphils 0.1 thou/uL (0.0-0.7); #Lymphocytes 1.7 thou/uL (1.20-3.40); #Monocytes 0.9 thou/uL (0.11-0.59); #Neutrophils 6.4 thou/uL (1.40-6.50); %Basophils 0.8 % (0.0-1.0); %Lymphocytes 18.2 % (21.0-51.0); %Monocytes 10.1 % (0.0-10.0); %Neutrophils 69.8 % (42.0-75.0); Mean Corpuscular HGB CONC 34.1 g/dL (32.0-36.0); Mean Corpuscular Volume 90.8 fL (78.0-98.0); Mean Platelet Volume 7.3 fL (7.4-10.4); Platelet Count 254 thou/uL (130-400); RBC Distribution Width 12.8 % (11.5-14.5); Red Blood Cell (RBC) Count 4.52 mill/uL (4.20-5.40); White Blood Cell (WBC) Count 9.2 thou/uL (4.8-10.8)
[2018-01-12] MEDS ORDERED: methylPREDNISolone Sod Succ/PF 125 MG/2 ML VIAL ONE (21:17)
--- NOTE | 2018-01-12 21:34 | RAD ---
FRONTAL RADIOGRAPH OF THE CHEST: Date: 01-12-18 Comparison: 08-22-17 History: Chest pain and dyspnea. FINDINGS: There is no pneumothorax. Inspiration is shallow, a stable finding. Mild increased linear interstitia l density noted in both lung bases, stable as well. No lobar consolidation or alveolar edema. IMPRESSION: Shallow inspiration with no focal consolidation or alveolar edema. POS: [facility]
[2018-01-12 21:36] LABS: ALT (SGPT) 17 U/L (8-55); AST (SGOT) 21 U/L (5-34); Alkaline Phosphatase 47 U/L (40-150); Anion Gap 14 mmol/L (10-20); BUN (Urea Nitrogen) 10 mg/dL (7.0-18.7); Bilirubin, Total 0.7 mg/dL (0.2-1.2); Calc. Creatinine Clearance 0 mL/min (70-130); Calcium 9.2 mg/dL (7.8-10.44); Carbon Dioxide 23 mmol/L (22-29); Chloride 104 mmol/L (98-107); Estimated GFR-MDRD Greater than 90; Glucose 78 mg/dL (70-105); Potassium 3.6 mmol/L (3.5-5.1); Sodium 137 mmol/L (136-145)
[2018-01-12 21:40] LABS: CKMB 1.7 ng/mL (0-6.6); Troponin I Less than 0.010 ng/mL (< 0.028)
[2018-01-12 22:18] LABS: BHCG - Serum Negative (NEGATIVE); Pregs Control Background? CLEAR/WHITE (CLR/WHITE); Pregs Control Bar Appear? YES (CONTROL BAR)
--- NOTE | 2018-01-12 23:07 | CT ---
CT ANGIOGRAM CHEST: Date: 01-12-18 Comparison: None. History: Shortness of breath, cough, dyspnea on exertion. Technique: Serial axial CT imaging at 2.5 mm intervals through the chest with IV contrast using a CT angiogram protocol. Coronal and sagittal 3D reformatted imaging obtained. FINDINGS: A small nonspecific hypodense lesion is noted within the central aspect of the spleen measuring 1.3 c m. Incidental note is made of a small stone within the gallbladder. The hepatic parenchyma appears hypod ense, which may signify a degree of steatosis although evaluation is limited secondary to timing of t he contrast bolus. No pleural, paracardial or mediastinal fluid. No axillary, mediastinal, or hilar l ymphadenopathy. No pulmonary arterial filling defect is seen to suggest the presence of acute pulmonary embolism. There are scattered peripheral areas of increased linear interstitial density within both lungs with a peripheral and bibasilar predominance. This includes areas of subpleural cystic change and honeycom delroy within both lung bases, including the inferior posterior aspect of bilateral lower lobes as well as the inferior and anterior aspect of the right middle lobe. There is a linear high density focus within the superior segment of right lower lobe which may reflec t change associated with prior lung biopsy. Similar finding noted within the inferior aspect of the r ight middle lobe. No focal area of consolidation. No airspace disease. No endobronchial lesion. No ac ana osseous abnormality. IMPRESSION: 1. Interstitial lung disease, consistent with the provided history of lupus. No focal consolidation o r alveolar disease noted. No evidence for pulmonary embolism. Incidental abdominal findings as descri bed above. POS: [facility]
[2018-01-13] MEDS ORDERED: Ondansetron HCl/PF 4 MG/2 ML Vial IVP PRN (00:15)
[2018-01-13] MEDS ORDERED: Guaifenesin DM 100-10/5 ML UDCUP PO PRN (00:15)
[2018-01-13] MEDS ORDERED: Acetaminophen 325 MG TAB PO PRN (00:15)
[2018-01-13 00:41] VITALS: BMI 34.0
[2018-01-13] MEDS ORDERED: Azithromycin 500 MG in Sodium Chloride 0.9% 250 ML 250 ML IVPB SCH (01:00)
[2018-01-13] MEDS ORDERED: Mycophenolate 250 MG CAP PO SCH (02:15)
[2018-01-13] MEDS ORDERED: Hydroxychloroquine Sulfate 200 MG TAB PO SCH ×2 (02:15→09:00)
[2018-01-13 04:43] LABS: #Basophils 0.1 thou/uL (0.0-0.2); #Lymphocytes 0.2 thou/uL (1.20-3.40); #Neutrophils 6.9 thou/uL (1.40-6.50); %Basophils 1.6 % (0.0-1.0); %Lymphocytes 3.1 % (21.0-51.0); %Monocytes 0.2 % (0.0-10.0); Hemoglobin 12.9 g/dL (12.0-16.0); Mean Corpuscular HGB CONC 33.5 g/dL (32.0-36.0); Mean Corpuscular Hemoglobin 30.5 pg (27.0-31.0); Mean Corpuscular Volume 90.8 fL (78.0-98.0); Mean Platelet Volume 7.7 fL (7.4-10.4); Platelet Count 233 thou/uL (130-400); RBC Distribution Width 12.9 % (11.5-14.5); Red Blood Cell (RBC) Count 4.23 mill/uL (4.20-5.40); White Blood Cell (WBC) Count 7.3 thou/uL (4.8-10.8)
[2018-01-13 05:12] LABS: Anion Gap 13 mmol/L (10-20); BUN (Urea Nitrogen) 11 mg/dL (7.0-18.7); Calc. Creatinine Clearance 167 mL/min (70-130); Carbon Dioxide 19 mmol/L (22-29); Chloride 107 mmol/L (98-107); Estimated GFR-MDRD Greater than 90; Glucose 262 mg/dL (70-105); Potassium 4.1 mmol/L (3.5-5.1); Sodium 135 mmol/L (136-145)
--- NOTE | 2018-01-13 07:48 | HP ---
CODE STATUS: FULL CODE. TIME OF EVALUATION: 11:55 p.m. CHIEF COMPLAINT: Worsening shortness of breath. HISTORY OF PRESENT ILLNESS: This is a 27-year-old female patient with past medical history of lupus, complicated with lupus pneumonitis. Patient follows with Dr. Galvan as outpatient, has not seen [facility] recently due to insurance problem, came to the hospital after having severe, gradually worsening sh ortness of breath that is worse with exertion, but is also present with rest, no alleviating factors. Patient denies any fever. She reported having chills and be wet at night due to sweating. REVIEW OF SYSTEMS: Constitutional: No fever. Patient has chills, generalized weakness. Respirator y: Scant cough, no sputum production, shortness of breath. Cardiovascular: No chest pain, palpitat ions, shortness of breath. No nausea, vomiting, diarrhea, abdominal pain. SALES APPOINTMENT COORDINATOR: No dizziness, headac he, or feeling lightheaded. Genitourinary: No burning with urination. Extremity: No leg swelling. All other systems were reviewed and negative except for the findings mentioned above. PAST MEDICAL HISTORY: Lupus, lupus pneumonitis. His agency sales management assistant is Dr. Borrego. Idiopathic pulm onary fibrosis, asthma, depression, long-term immunosuppression. PAST SURGICAL HISTORY: Patient has two prior low transverse C-sections. ALLERGIES: No known drug allergies. SOCIAL HISTORY: No smoking, no drugs, alcohol, lives with family. HOME MEDICATIONS: Patient has reported she was taking some home medications, but not all of them. S he reported prednisone, CellCept 500 mg 2 times a day, hydroxychloroquine 200 mg 2 times a day, Alka nix 40 mg daily, Cymbalta 30 mg daily, tramadol 50 mg q.6 p.r.n., oxycodone only if needed. She was not taking it right now. Combivent, and Advair 250/50 once a day. PHYSICAL EXAMINATION: VITAL SIGNS: On presentation, blood pressure 131/84 with heart rate 100, respiratory rate was 22, te mperature 98.6, pain 8/10, oxygen saturation was 100. GENERAL APPEARANCE: The patient is alert, oriented, looks ill, tired, not in acute distress. HEENT: Eyes, normal conjunctivae, moist oral mucosa, anicteric. NECK: No JVD. RESPIRATORY: Patient has bilateral rales in two-thirds of the lung bases. No wheezing. Symmetrical expansion. CARDIOVASCULAR: Normal rate, regular rhythm. No gallops. No edema. ABDOMEN: Soft, normal bowel sounds. MUSCULOSKELETAL: Baseline range of motion and strength. No tenderness. SKIN: Warm and intact. No pallor, no rash or redness. NEUROLOGIC: Baseline sensory. No evidence of any new focal weakness. Baseline speech. Cranial ner ves seems to be intact. PSYCHIATRIC: The patient is in a good mood. No anxiety, oriented, optimal judgment. LABORATORY DATA: EKG was reviewed, the patient has normal sinus rhythm with a rate of 92, SD 164, QR S 96, QT corrected 455. Both of this criteria for left ventricular hypertrophy. CAT scan was done. Impression: Interstitial lung disease consistent with provided history of lupus. No focal consolid ation or alveolar disease noted. No evidence of pulmonary embolism . Labs were reviewed. Whit e count 9.2, hemoglobin 14, platelet count 254. D-dimer 0.78. Sodium 137, potassium 3.6, chloride 1 04, carbon dioxide 23, anion gap 14, BUN 10, creatinine 0.7, GFR 90, glucose 78. Troponin is negativ e. ASSESSMENT AND PLAN: The patient was placed in the hospital with following medical problems: 1. Lupus pneumonitis, patient follows with Dr. Galvan, unable to see him in the past few months due to insurance problem caused. The patient was taken to lupus medications on a daily basis, but has g ot a flare up again. To start her on steroids and we will continue for now. We will follow up recommendations for further management. 2. Interstitial lung disease likely related to lupus, patient has bilateral rales, patient is an imm unosuppressed host for now and I have started Zithromax, was on procalcitonin. 3. Positive D-dimer, CT angio was negative. 4. Obesity, advised to lose weight, might be related to chronic steroid use. 5. Deep venous thrombosis prophylaxis.
[2018-01-13] MEDS ORDERED: Artificial Tears 18 DROP/0.9 ML EA EYE PRN (07:51)
[2018-01-13] MEDS ORDERED: Sodium Chloride 0.65% Nasal 44 ML BOT EA NARE PRN (07:51)
[2018-01-13] MEDS ORDERED: Chloraseptic Spray 180 ml Bottle PO PRN (07:51)
[2018-01-13] MEDS ORDERED: Eucerin (Mineral Oil/Petrolatum,White) 30 gm Jar TOP PRN (07:51)
[2018-01-13] MEDS ORDERED: Mag-Al 1200 mg/1200 mg/30 ML UDCUP PO PRN (07:51)
[2018-01-13] MEDS ORDERED: Senokot 8.6 MG TAB PO PRN (07:51)
[2018-01-13] MEDS ORDERED: Loratadine 10 MG TAB PO PRN (07:51)
[2018-01-13] MEDS ORDERED: hydrALAZINE 20 MG/ML VIAL SLOW IVP PRN (07:51)
[2018-01-13] MEDS ORDERED: Milk Of Magnesia 30 ML UDCUP PO PRN (07:51)
[2018-01-13] MEDS ORDERED: Loperamide HCl 2 MG CAP PO PRN (07:51)
[2018-01-13] MEDS ORDERED: Ondansetron ODT 4 MG TAB PO PRN (07:51)
[2018-01-13] MEDS ORDERED: Temazepam 15 MG CAP PO PRN (07:51)
[2018-01-13] MEDS ORDERED: azaTHIOprine 50 MG TAB PO SCH (09:00)
[2018-01-13] MEDS: Enoxaparin Sodium 40 MG/0.4 ML SYRINGE SC SCH (09:02)
[2018-01-13] MEDS: Diabetic Tussin 200 MG/10 ML UDCUP PO PRN ×2 (09:15→23:06)
[2018-01-13] MEDS: HYDROcodone/Acetaminophen 5/325 mg Tablet PO PRN ×2 (09:15→13:56)
--- NOTE | 2018-01-13 11:07 | PDOC.PN ---
- Subjective Encounter Start Date: 01/13/18 Encounter Start Time: 08:30 -: old records requested/rev pt has SHEN, cough+, no chest pain, no fever, pt was not able to see pulmonary and rheumatology due to lack of insurance - Objective Resuscitation Status: Resuscitation Status FULL:Full Resuscitation MAR Reviewed: Yes Vital Signs & Weight: Vital Signs (12 hours) Temp Pulse Resp BP BP Pulse Ox 01/13/18 10:24 98 14 01/13/18 07:08 98.6 F 98 16 110/76 100 01/13/18 06:28 100 12 01/13/18 04:00 98.6 F 100 16 92/59 L 100 01/13/18 01:10 98.8 F 97 18 100 01/13/18 00:39 98.8 F 97 18 129/89 100 Weight Weight 210 lb 12.8 oz I&O: 01/12/18 01/13/18 01/14/18 06:59 06:59 06:59 Intake Total 910 Balance 910 Result Diagrams: 01/13/18 03:43 01/13/18 03:43 Radiology Reviewed by me: Yes (CTA chest) Phys Exam - Physical Examination Constitutional: NAD HEENT: PERRLA, moist MMs, sclera anicteric Neck: no JVD, supple Respiratory: no wheezing, no rhonchi fine scattered rales+ Cardiovascular: RRR, no significant murmur, no rub Gastrointestinal: soft, non-tender, no distention, positive bowel sounds obesity+ Musculoskeletal: no edema, pulses present Neurological: non-focal, normal sensation, moves all 4 limbs Lymphatic: no nodes Psychiatric: normal affect, A&O x 3 Skin: no rash, normal turgor Dx/Plan (1) SHEN (dyspnea on exertion) Code(s): R06.09 - OTHER FORMS OF DYSPNEA Status: Acute Comment: due to ILD (2) Asthma Code(s): J45.909 - UNSPECIFIED ASTHMA, UNCOMPLICATED Status: Chronic (3) Chronic respiratory failure with hypoxia Code(s): J96.11 - CHRONIC RESPIRATORY FAILURE WITH HYPOXIA Status: Chronic Comment: pt can not afford oxygen so she was not using at home (4) ILD (interstitial lung disease) Code(s): J84.9 - INTERSTITIAL PULMONARY DISEASE, UNSPECIFIED Status: Chronic Comment: with acute exacerbation due to SLE (5) Lupus (systemic lupus erythematosus) Code(s): M32.9 - SYSTEMIC LUPUS ERYTHEMATOSUS, UNSPECIFIED Status: Chronic (6) Obesity (BMI 30.0-34.9) Code(s): E66.9 - OBESITY, UNSPECIFIED Status: Chronic - Plan cont current plan of care, continue antibiotics, respiratory therapy * continue rocephin and azithromycin empirically * continue solumedrol * medication reviewed as below * symptomatic treatment * pulmonary consulted * social work * she has disability but no insurance per pt. Review of Systems - Review of Systems Constitutional: weakness. negative: fever, chills, sweats, malaise, other Eyes: negative: Pain, Vision Change, Conjunctivae Inflammation, Eyelid Inflammation, Redness, Other ENT: negative: Ear Pain, Ear Discharge, Nose Pain, Nose Discharge, Nose Congestion, Mouth Pain, Mouth Swelling, Throat Pain, Throat Swelling, Other Respiratory: Cough, Shortness of Breath, SOB with Excertion. negative: Dry, Hemoptysis, Pleuritic Pain, Sputum, Wheezing Cardiovascular: negative: chest pain, palpitations, orthopnea, paroxysmal nocturnal dyspnea, edema, light headedness, other Gastrointestinal: negative: Nausea, Vomiting, Abdominal Pain, Diarrhea, Constipation, Melena, Hematochezia, Other Genitourinary: negative: Dysuria, Frequency, Incontinence, Hematuria, Retention , Other Musculoskeletal: negative: Neck Pain, Shoulder Pain, Arm Pain, Back Pain, Hand Pain, Leg Pain, Foot Pain, Other Skin: negative: Rash, Lesions, Kennedy, Bruising, Other - Medications/Allergies Allergies/Adverse Reactions: Allergies Allergy/AdvReac Type Severity Reaction Status Date / Time No Known Allergies Allergy Verified 01/13/18 00:34 Medications: Current Medications Acetaminophen (Tylenol) 650 mg PO Q4H PRN PRN Reason: Headache/Fever or Pain Last Admin: 01/13/18 01:34 Dose: 650 mg Hydrocodone Bitart/Acetaminophen ([place] 5/325) 1 tab PO Q4H PRN PRN Reason: Moderate Pain (4-6) Last Admin: 01/13/18 09:15 Dose: 1 tab Al Hydroxide/Mg Hydroxide (Maalox) 15 ml PO Q4H PRN PRN Reason: Heartburn or Indigestion Albuterol/Ipratropium (Duoneb) 3 ml NEB QID-RT LAWANDA Last Admin: 01/13/18 10:24 Dose: 3 ml Aspirin (Aspirin Chewable) 81 mg PO DAILY [facility] Last Admin: 01/13/18 09:01 Dose: Not Given Enoxaparin Sodium (Lovenox) 40 mg SC 0900 [facility] Last Admin: 01/13/18 09:02 Dose: 40 mg Guaifenesin (Robitussin Sf) 200 mg PO Q4H PRN PRN Reason: Cough Last Admin: 01/13/18 09:15 Dose: 200 mg Hydralazine HCl (Apresoline) 10 mg SLOW IVP Q4H PRN PRN Reason: Systolic BP > 180 Hydroxychloroquine Sulfate (Plaquenil) 200 mg PO DAILY [facility] Loperamide HCl (Imodium) 2 mg PO PRN PRN PRN Reason: Diarrhea/Loose Stools Loratadine (Claritin) 10 mg PO DAILYPRN PRN PRN Reason: Sinus Symptoms Magnesium Hydroxide (Milk Of Magnesium) 30 ml PO DAILYPRN PRN PRN Reason: Constipation Mineral Oil/White Petrolatum (Eucerin Cream) 0 gm TOP BIDPRN PRN PRN Reason: Dry Skin Montelukast Sodium (Singulair) 10 mg PO QPM [facility] Mycophenolate Mofetil (Cellcept) 1,500 mg PO BID [facility] Ondansetron HCl (Zofran) 4 mg IVP Q6H PRN PRN Reason: Nausea/Vomiting Ondansetron HCl (Zofran Odt) 4 mg PO Q6H PRN PRN Reason: Nausea/Vomiting Pantoprazole Sodium (Protonix) 40 mg PO DAILY [facility] Phenol (Chloraseptic [place] 180 Ml Bot) 0 ml PO PRN PRN PRN Reason: Sore Throat Prednisone (Prednisone) 60 mg PO QAM-[facility] Senna (Senokot) 2 tab PO HSPRN PRN PRN Reason: Constipation Sodium Chloride ([place] Nasal [place] 0.65%) 0 ml EA NARE QIDPRN PRN PRN Reason: Nasal Congestion Sodium Chloride (Flush - Normal Saline) 10 ml IVF Q12HR [facility] Last Admin: 01/13/18 09:01 Dose: 10 ml Sodium Chloride (Flush - Normal Saline) 10 ml IVF PRN PRN PRN Reason: Saline Flush Temazepam (Restoril) 15 mg PO HSPRN PRN PRN Reason: Insomnia
--- NOTE | 2018-01-13 11:28 | CON ---
DATE OF CONSULTATION: 01/13/2018 PULMONARY CONSULTATION NOTE SERVICE: Pulmonary Medicine. REASON FOR CONSULTATION: Interstitial lung disease. HISTORY OF PRESENT ILLNESS: The patient is a 27-year-old white female with past medical history sign ificant for asthma and interstitial lung disease. Her interstitial lung disease has been essentially quiescent since being started on good disease modifying therapy. That being said, she recently move d into a new apartment complex. Ever since she has been there, she has had increasing heaviness in t he chest and wheezing. Her nebulized medications actually help with these things. She is on Advair on twice daily basis. She had previously successfully titrated down to 10 mg of steroids on a daily basis without issue. She recently went to [place] and her breathing was fantastic. When she arrived back home in her apartment complex, as soon as she walked in the door, she started feeling tight in the chest again. This started increasing over a period of roughly 2 weeks. She then had severe dysp darya and presented to the Emergency Department. She was given large dose of steroids and overnight, s he had dramatic resolution in symptoms. She denies any current fevers, chills, nausea, vomiting, shanon rtness of breath or chest discomfort currently. She is not currently wheezing. She is coughing, but this is at her baseline. It is more of a clearing of the throat. She is not bringing up any sputum . She does not bring up anything that looks yellow or green. Otherwise, she is in her usual state o f health and has no specific complaints. PAST MEDICAL HISTORY: 1. Interstitial lung disease secondary to systemic lupus erythematosus. 2. Systemic lupus erythematosus. 3. Asthma. 4. Major depressive disorder. 5. Immunosuppression. PAST SURGICAL HISTORY: section x2. ALLERGIES: No known drug allergies. MEDICATIONS: List of her medications was reviewed. Multiple updates were made at this time. SOCIAL HISTORY: Negative for alcohol, tobacco or illicit drug use. She has no exposure to chemicals , dust asbestos or tuberculosis. FAMILY HISTORY: Noncontributory. REVIEW OF SYSTEMS: General, head, ears, eyes, nose, throat, cardiovascular, respiratory, GI, , mus culoskeletal, neurologic and skin is negative as mentioned in HPI. ASSESSMENT: VITAL SIGNS: Afebrile, pulse 98, blood pressure 110/76, respirations 16, saturation 100% on room air . GENERAL: The patient is awake and alert, in no apparent distress. LUNGS: There is actually decent air entry. There is no prolonged expiratory phase or wheezing curre ntly. Extensive crackles are present throughout bibasilar regions. HEART: Normal rate, regular. ABDOMEN: Soft, nontender and nondistended. Bowel sounds are positive. MUSCULOSKELETAL: No cyanosis or clubbing. There is no pitting in the bilateral lower extremities. NEUROLOGIC: Grossly nonfocal. LABORATORY DATA: CBC is grossly unremarkable. She has 95% neutrophils, an effect of steroids, yeste rday they were normal. D-dimer 0.78. Basic metabolic profile, liver function studies, troponin, ser um and procalcitonin are all unremarkable. IMAGING DATA: CTA of the chest demonstrates interstitial changes and fibrotic changes with honeycomb ing in the bibasilar regions. That being said, I do not see any extensive ground glass opacification s throughout bilateral lung ferrera. There is no pulmonary embolism. ASSESSMENT: 1. Acute hypoxic respiratory failure, resolved. 2. Asthma with acute exacerbation. 3. Interstitial lung disease, secondary to systemic lupus erythematosus, currently quiescent, DISCUSSION AND PLAN: I will deescalate her steroids. Antibiotics will be interrupted. My suspicion is the patient having an asthma exacerbation. That is the only reason that she would have cleared s o quickly over the last 24 hours. We can taper her steroids through 2 weeks. If tomorrow morning, i f she remains stable, she can be considered for transition out of the hospital. I am going to add Si ngulair to her home medications. She is not on azathioprine in the outpatient setting and this will be interrupted. Pulmonary or Critical Care will continue to follow along for the time being. Ultima tely, she will need to taper down her steroids to 10 mg on a daily basis over the next 2 weeks. I do not see any ground glass opacifications suggestive of acute inflammatory changes of the lungs.
[2018-01-13] MEDS: Mycophenolate 250 MG CAP PO SCH (20:51)
[2018-01-13] MEDS ORDERED: Montelukast Sodium 10 mg Tablet PO SCH (21:00)
[2018-01-14] MEDS ORDERED: predniSONE 20 MG TAB PO SCH (08:00)
[2018-01-14] MEDS: Enoxaparin Sodium 40 MG/0.4 ML SYRINGE SC SCH (08:13)
[2018-01-14] MEDS: Mycophenolate 250 MG CAP PO SCH (08:15)
[2018-01-14] MEDS: HYDROcodone/Acetaminophen 5/325 mg Tablet PO PRN (08:28)
[2018-01-14] MEDS ORDERED: Hydroxychloroquine Sulfate 200 MG TAB PO SCH (09:00)
--- NOTE | 2018-01-14 11:10 | PDOC.PN ---
- Subjective Encounter Start Date: 01/14/18 Encounter Start Time: 08:30 Patient seen and examined. No new complaints. No overnight events - Objective Resuscitation Status: Resuscitation Status FULL:Full Resuscitation MAR Reviewed: Yes Vital Signs & Weight: Vital Signs (12 hours) Temp Pulse Resp BP BP Pulse Ox 01/14/18 10:49 90 16 01/14/18 08:11 98.9 F 88 16 112/79 95 01/14/18 08:00 98.9 F 88 16 95 01/14/18 07:36 80 12 01/14/18 04:42 98.8 F 88 20 105/67 95 01/14/18 00:00 98.8 F 92 20 134/65 98 Weight Weight 210 lb 12.8 oz I&O: 01/13/18 01/14/18 01/15/18 06:59 06:59 06:59 Intake Total 910 660 960 Balance 910 660 960 Result Diagrams: 01/13/18 03:43 01/13/18 03:43 Phys Exam - Physical Examination Constitutional: NAD HEENT: PERRLA, moist MMs, sclera anicteric Neck: no JVD, supple Respiratory: no wheezing, no rales, no rhonchi Cardiovascular: RRR, no significant murmur, no rub Gastrointestinal: soft, non-tender, no distention, positive bowel sounds Musculoskeletal: no edema, pulses present Neurological: non-focal, normal sensation, moves all 4 limbs Psychiatric: normal affect, A&O x 3 Skin: no rash, normal turgor Dx/Plan (1) SHEN (dyspnea on exertion) Code(s): R06.09 - OTHER FORMS OF DYSPNEA Status: Acute Comment: due to ILD (2) Asthma Code(s): J45.909 - UNSPECIFIED ASTHMA, UNCOMPLICATED Status: Chronic (3) Chronic respiratory failure with hypoxia Code(s): J96.11 - CHRONIC RESPIRATORY FAILURE WITH HYPOXIA Status: Chronic Comment: pt can not afford oxygen so she was not using at home (4) ILD (interstitial lung disease) Code(s): J84.9 - INTERSTITIAL PULMONARY DISEASE, UNSPECIFIED Status: Chronic Comment: with acute exacerbation due to SLE (5) Lupus (systemic lupus erythematosus) Code(s): M32.9 - SYSTEMIC LUPUS ERYTHEMATOSUS, UNSPECIFIED Status: Chronic (6) Obesity (BMI 30.0-34.9) Code(s): E66.9 - OBESITY, UNSPECIFIED Status: Chronic - Plan cont current plan of care * medication reviewed as below * symptomatic treatment * stable for discharge * see discharge pavel. Review of Systems - Review of Systems Eyes: negative: Pain, Vision Change, Conjunctivae Inflammation, Eyelid Inflammation, Redness, Other ENT: negative: Ear Pain, Ear Discharge, Nose Pain, Nose Discharge, Nose Congestion, Mouth Pain, Mouth Swelling, Throat Pain, Throat Swelling, Other Respiratory: negative: Cough, Dry, Shortness of Breath, Hemoptysis, SOB with Excertion, Pleuritic Pain, Sputum, Wheezing Cardiovascular: negative: chest pain, palpitations, orthopnea, paroxysmal nocturnal dyspnea, edema, light headedness, other Gastrointestinal: negative: Nausea, Vomiting, Abdominal Pain, Diarrhea, Constipation, Melena, Hematochezia, Other Genitourinary: negative: Dysuria, Frequency, Incontinence, Hematuria, Retention , Other Musculoskeletal: negative: Neck Pain, Shoulder Pain, Arm Pain, Back Pain, Hand Pain, Leg Pain, Foot Pain, Other - Medications/Allergies Allergies/Adverse Reactions: Allergies Allergy/AdvReac Type Severity Reaction Status Date / Time No Known Allergies Allergy Verified 01/13/18 00:34 Medications: Current Medications Acetaminophen (Tylenol) 650 mg PO Q4H PRN PRN Reason: Headache/Fever or Pain Last Admin: 01/13/18 01:34 Dose: 650 mg Hydrocodone Bitart/Acetaminophen (Benjamin 5/325) 1 tab PO Q4H PRN PRN Reason: Moderate Pain (4-6) Last Admin: 01/14/18 08:28 Dose: 1 tab Al Hydroxide/Mg Hydroxide (Maalox) 15 ml PO Q4H PRN PRN Reason: Heartburn or Indigestion Albuterol/Ipratropium (Duoneb) 3 ml NEB QID-RT [facility] Last Admin: 01/14/18 10:49 Dose: 3 ml Albuterol/Ipratropium (Duoneb) 3 ml NEB Q4H PRN PRN Reason: SOB &/or Wheezing Last Admin: 01/13/18 22:45 Dose: 3 ml Aspirin (Aspirin Chewable) 81 mg PO DAILY [facility] Last Admin: 01/14/18 08:16 Dose: Not Given Enoxaparin Sodium (Lovenox) 40 mg SC 0900 [facility] Last Admin: 01/14/18 08:13 Dose: 40 mg Guaifenesin (Robitussin Sf) 200 mg PO Q4H PRN PRN Reason: Cough Last Admin: 01/13/18 23:06 Dose: 200 mg Hydralazine HCl (Apresoline) 10 mg SLOW IVP Q4H PRN PRN Reason: Systolic BP > 180 Hydroxychloroquine Sulfate (Plaquenil) 200 mg PO DAILY [facility] Last Admin: 01/14/18 08:14 Dose: 200 mg Loperamide HCl (Imodium) 2 mg PO PRN PRN PRN Reason: Diarrhea/Loose Stools Loratadine (Claritin) 10 mg PO DAILYPRN PRN PRN Reason: Sinus Symptoms Magnesium Hydroxide (Milk Of Magnesium) 30 ml PO DAILYPRN PRN PRN Reason: Constipation Mineral Oil/White Petrolatum (Eucerin Cream) 0 gm TOP BIDPRN PRN PRN Reason: Dry Skin Montelukast Sodium (Singulair) 10 mg PO QPM [facility] Last Admin: 01/13/18 20:50 Dose: 10 mg Mycophenolate Mofetil (Cellcept) 1,500 mg PO BID [facility] Last Admin: 01/14/18 08:15 Dose: 1,500 mg Ondansetron HCl (Zofran) 4 mg IVP Q6H PRN PRN Reason: Nausea/Vomiting Ondansetron HCl (Zofran Odt) 4 mg PO Q6H PRN PRN Reason: Nausea/Vomiting Pantoprazole Sodium (Protonix) 40 mg PO DAILY [facility] Last Admin: 01/14/18 08:14 Dose: 40 mg Phenol (Chloraseptic [place] 180 Ml Bot) 0 ml PO PRN PRN PRN Reason: Sore Throat Prednisone (Prednisone) 60 mg PO QAM-WM [facility] Last Admin: 01/14/18 08:15 Dose: 60 mg Senna (Senokot) 2 tab PO HSPRN PRN PRN Reason: Constipation Sodium Chloride ([place] Nasal [place] 0.65%) 0 ml EA NARE QIDPRN PRN PRN Reason: Nasal Congestion Sodium Chloride (Flush - Normal Saline) 10 ml IVF Q12HR [facility] Last Admin: 01/14/18 08:16 Dose: 10 ml Sodium Chloride (Flush - Normal Saline) 10 ml IVF PRN PRN PRN Reason: Saline Flush Temazepam (Restoril) 15 mg PO HSPRN PRN PRN Reason: Insomnia
[2018-01-14 11:49] VITALS: BP 123/84; TEMP 98.4
--- NOTE | 2018-01-14 12:33 | DIS ---
DATE OF ADMISSION: 01/12/2018 DATE OF DISCHARGE: 01/14/2018 DISCHARGE DISPOSITION: Home. PRIMARY DISCHARGE DIAGNOSES: 1. Asthma exacerbation. 2. Dyspnea on exertion, due to interstitial lung disease. SECONDARY DISCHARGE DIAGNOSES: Mild intermittent asthma, lupus, obesity with BMI 34. PRIMARY PROCEDURE/OPERATION: None. RADIOLOGICAL INVESTIGATION: Chest x-ray and CT angiography. SIGNIFICANT LABORATORY DATA: Hemoglobin 12.9. D-dimer 0.78, creatinine 0.75. DISCHARGE MEDICATIONS: Ventolin inhaler 2 puffs q.6 hourly p.r.n., Combivent 2 puffs inhalation q.i. d., Plaquenil 200 mg p.o. b.i.d., Singulair 10 mg p.o. daily, CellCept 1500 mg p.o. b.i.d., Protonix 40 mg p.o. at bedtime, prednisone 60 mg p.o. daily. The patient is instructed to reduce 20 mg every 3 days and then continue her baseline 10 mg daily. CONTRAINDICATIONS: None. CODE STATUS: FULL CODE. INPATIENT CONSULTANTS: Dr. Galvan. TEST RESULTS PENDING ON DISCHARGE: None. ALLERGIES: No known drug allergy. DISCHARGE PLAN: Post hospital, the patient will follow up with primary care physician, rheumatologleonel keyes, and Dr. Galvan. HOSPITAL COURSE: This is a 27-year-old female, who was admitted by Dr. Dong. Please see his H a nd P for further detail. Because of lack of insurance, this patient was not able to follow Dr. 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 She came to emergency room with dyspnea on exertion. She was having more respiratory distress, because of asthma exacerbation. This time she was admitted to the hospital. She was treated with Solu-Medrol with significant improvement. Dr. Galvan for that mostly asthma ex acerbation might have contributed to current presentation on top of her mild lupus-induced interstiti al lung disease. We prescribed slow taper of prednisone over 2-3 weeks. Antibiotic therapy is not n eeded as per Dr. Galvan. Patient is doing very well. She does not need any home oxygen and today p atient is medically stable for discharge. The patient is seen and examined at bedside today. Please see my progress note from today for further detail.
--- NOTE | 2018-01-14 13:58 | PRG ---
DATE OF SERVICE: 01/14/2018 SERVICE: Pulmonary Medicine. INTERVAL HISTORY: The patient is doing fine from her breathing standpoint. She denies any fevers, c hills, nausea or vomiting. She does have a little bit of dyspnea, but she is essentially back to [facility]. She has been able to walk around the hallways without significant issues. OBJECTIVE: VITAL SIGNS: Afebrile, pulse 88, blood pressure 123/84, respirations 16, saturation 96% on room air. GENERAL: The patient is awake, alert, no apparent distress. LUNGS: Decent air entry. Crackles are present throughout bilateral lung ferrera, but more pronounced at the bases. HEART: Normal rate, regular. ABDOMEN: Soft, nontender, nondistended. Bowel sounds are positive. MUSCULOSKELETAL: No cyanosis or clubbing. No pitting in the bilateral lower extremities. NEUROLOGIC: Grossly nonfocal. ASSESSMENT: 1. Acute hypoxic respiratory failure, resolved. 2. Asthma with acute exacerbation. 3. Interstitial lung disease secondary to systemic lupus erythematosus, currently quiescent. DISCUSSION AND PLAN: The patient can be tapered off of her steroids to her home dose of steroids aft er about 2 weeks. We will continue Singfranciair into the outpatient setting. I will see her in clinic as previously directed. She did mention that a big piece of why she was here because she is no longe r on her inhalers. I will see about giving her sample before discharge from the hospital, but from m y perspective, she can go today.
== END 2018-01-14 17:07 | disposition home or self-care (01) | DRG 202 ==
LOC: ERS 20:40 → T4-A 23:12
PROVIDERS: ADMIT Hospitalist; ATTEND Hospitalist
DX: J45.31 Mild persistent asthma with (acute) exacerbation (principal); J96.21 Acute and chronic respiratory failure with hypoxia; M32.9 Systemic lupus erythematosus, unspecified; E66.9 Obesity, unspecified; Z68.34 Body mass index [BMI] 34.0-34.9, adult; Z91.19 Patient's noncompliance with other medical treatment and regimen; F32.9 Major depressive disorder, single episode, unspecified
CPT/HCPCS: 36415; 71045; 71275; 80048; 80053; 82553; 84145; 84484; 84703; 85025; 85379; 93005; 94640; 94760; 96374; A4216; J0456; J1650; J2920; J2930; J7050; J7500; J7506; J7517; J7620

== ENCOUNTER 2018-04-27 10:55 | Inpatient (IN) | payer OTHER, SELFPAY ==
[2018-04-27 11:41] LABS: #Eosinphils 0.1 thou/uL (0.0-0.7); #Lymphocytes 0.8 thou/uL (1.20-3.40); #Monocytes 0.3 thou/uL (0.11-0.59); #Neutrophils 13.1 thou/uL (1.40-6.50); %Basophils 0.1 % (0.0-1.0); %Eosinophils 0.7 % (0.0-10.0); %Lymphocytes 5.2 % (21.0-51.0); %Monocytes 2.1 % (0.0-10.0); %Neutrophils 91.9 % (42.0-75.0); Hemoglobin 13.9 g/dL (12.0-16.0); Mean Corpuscular HGB CONC 31.7 g/dL (32.0-36.0); Mean Corpuscular Hemoglobin 29.3 pg (27.0-31.0); Mean Corpuscular Volume 92.5 fL (78.0-98.0); Mean Platelet Volume 7.9 fL (7.4-10.4); Platelet Count 254 thou/uL (130-400); RBC Distribution Width 12.8 % (11.5-14.5); Red Blood Cell (RBC) Count 4.76 mill/uL (4.20-5.40); White Blood Cell (WBC) Count 14.3 thou/uL (4.8-10.8)
[2018-04-27] MEDS ORDERED: Fentanyl 100 MCG/2 ML VIAL ONE (11:45)
[2018-04-27] MEDS ORDERED: Dexamethasone 4 mg/ml Vial ONE (11:46)
[2018-04-27 12:17] LABS: BHCG - Serum Negative (NEGATIVE); Pregs Control Background? CLEAR/WHITE (CLR/WHITE); Pregs Control Bar Appear? YES (CONTROL BAR)
[2018-04-27 12:23] LABS: CKMB 1.6 ng/mL (0-6.6); Troponin I Less than 0.010 ng/mL (< 0.028)
--- NOTE | 2018-04-27 12:34 | RAD ---
CHEST ONE VIEW: History: CP Comparison: 01-11-18 FINDINGS: Lungs are severely hypoinflated. The lung ferrera are similar, without focal airspace consolidation, p neumothorax or effusion. Chronic appearing interstitial markings are present at the lung bases. IMPRESSION: Similar examination of the chest with lung hyperinflation. POS: [facility]
[2018-04-27 12:51] LABS: ALT (SGPT) 17 U/L (8-55); AST (SGOT) 16 U/L (5-34); Albumin 3.7 g/dL (3.5-5.0); Alkaline Phosphatase 38 U/L (40-150); Anion Gap 15 mmol/L (10-20); BUN (Urea Nitrogen) 9 mg/dL (7.0-18.7); Bilirubin, Total 0.9 mg/dL (0.2-1.2); CK (CPK) 82 U/L (29-168); Calc. Creatinine Clearance 0 mL/min (70-130); Carbon Dioxide 21 mmol/L (22-29); Chloride 104 mmol/L (98-107); Estimated GFR-MDRD Greater than 90; Globulin 3.4 g/dL (2.4-3.5); Glucose 111 mg/dL (70-105); Lipase 22 U/L (8-78); Potassium 4.1 mmol/L (3.5-5.1); Protein, Total 7.1 g/dL (6.0-8.3); Sodium 136 mmol/L (136-145)
[2018-04-27 13:26] LABS: Bilirubin Negative (Negative); Blood, Urine Large (Negative); Clarity CLOUDY (Clear); Glucose, Urine (Dipstick) Negative (Negative); Leukocyte Large (Negative); Nitrite Negative (Negative); Protein, Urine (Dipstick) 30 mg/dL (Neg-Trace); Specific Gravity, Urine 1.016 (1.002-1.036); pH, Urine 6.5 (5.0-9.0)
[2018-04-27 13:30] LABS: Bacteria/HPF None Seen HPF (None Seen); Hyaline Casts/LPF 0-3 HYALINE CAST LPF (0-3 Hyaline); Pathc Cast-AUWi Flag 0.14 (0-2.49); RBC/HPF GREATER THAN 50-TNTC HPF (0-3); WBC/HPF 21-50 HPF (0-3); Yeast-AUWi Flag 17.8 (0-25.0)
[2018-04-27] MEDS ORDERED: ISOVUE-370 76%-LOCM 1 ML ONE (13:31)
--- NOTE | 2018-04-27 14:31 | CT ---
CTA CHEST: History: 27-year-old presents with a history of respiratory difficulties, bilateral lower extremity pain and r edness. Technique: Contrast enhanced CTA of the chest obtained with 2D and 3D reconstructed images performed on an [employer] 3D workstation. FINDINGS: CTA images demonstrate the lung parenchyma to be unremarkable. Tiny bilateral pleural effusions are s een. Some lung base interstitial changes seen compatible with interstitial fibrosis. The thoracic aorta is unremarkable. No evidence of filling defects seen in the pulmonary arteries to suggest pulmonary emboli. Tiny area of hyperdensity seen in the gallbladder compatible with a small gallstone. An area of hypodensity is seen in the spleen, slightly smaller than on previous exam, compatible with possible splenic cyst. IMPRESSION: No evidence of pulmonary emboli seen. POS: JUAN MIGUEL
[2018-04-27] MEDS ORDERED: cefTRIAXone\\ROCEPHIN 1 GM VIAL ONE (15:24)
[2018-04-27] MEDS ORDERED: MEROPENEM 1 GM/50 ML 1 GM in Premix Bag 1 BAG IVPB SCH (15:45)
[2018-04-27] MEDS ORDERED: Benzonatate 100 MG CAP PO PRN (18:24)
[2018-04-27] MEDS ORDERED: Metoclopramide HCl 10 MG TAB PO PRN (18:24)
[2018-04-27] MEDS ORDERED: Ondansetron HCl/PF 4 MG/2 ML Vial IVP PRN (18:24)
[2018-04-27] MEDS ORDERED: Acetaminophen 325 MG TAB PO PRN (18:24)
[2018-04-27] MEDS ORDERED: Ondansetron ODT 4 MG TAB PO PRN (18:24)
[2018-04-27] MEDS ORDERED: hydrALAZINE 20 MG/ML VIAL SLOW IVP PRN (18:24)
[2018-04-27 19:14] LABS: PTT 28.1 SEC (22.9-36.1); Prothrombin Time 13.4 SEC (12.0-14.7)
[2018-04-27 19:17] LABS: Complement-C4 39.5 mg/dL (15-57)
[2018-04-27] MEDS: Mometasone/Formoterol 120 PUFF INHALER INH SCH (19:19)
[2018-04-27 19:34] LABS: Free T4 (Free Thyroxine) 1.41 ng/dL (0.70-1.48); Thyroid Stimulating Hormone 0.3926 uIU/mL (0.35-4.94)
[2018-04-27] MEDS: HYDROcodone/Acetaminophen 5/325 mg Tablet PO PRN (20:06)
[2018-04-27] MEDS: Sodium Chloride 0.9% 1,000 ML IV SCH (20:07)
[2018-04-27] MEDS: Mycophenolate 250 MG CAP PO SCH (20:08)
[2018-04-27] MEDS: Hydroxychloroquine Sulfate 200 MG TAB PO SCH (20:08)
--- NOTE | 2018-04-27 23:25 | HP ---
PRIMARY CARE PHYSICIAN: Dr. Abraham at [facility]. CHIEF COMPLAINT: Severe pain in both feet. HISTORY OF PRESENT ILLNESS: Ms. Isaacs is a pleasant 27-year-old female that has a history of system ic lupus erythematosus. She was diagnosed in 2012. She says at that time it was found as a result o f having severe joint pains and swelling. She says that she has had problems with sudden and severe onset of swelling and pain and redness in her feet. This has been off and on for about 3 years. She says that it happens usually between having her children and the episodes usually will last several hours and then just suddenly go away on its own. She says that around 7:00 a.m. this morning, she wo ke up and had the sudden episode of severe redness, swelling and pain in her feet. She says that her vein seemed much more prominent than usual. She describes the pain as a crushing pain like her feet are being crushed. The pain will go all the way up to her knees. She says it is worse than it has ever been in the past. She rates it a 20/10. She says that the pain was so severe that she had to c ome to the emergency room for evaluation. She said she was trying to wait it out since sometimes the se episodes will resolve on their own, but this time it did not. When she came to the emergency room for evaluation, she was found to be tachycardic. Her white blood cell count was elevated and it was noted that she did have some significant redness in both feet and she is being admitted for a lupus flare. It is also noted that she did have a CT scan of the chest which was negative for pulmonary em bolism. The patient says she currently does not have any chest pain. She says that she is short of breath all the time, it is not any worse than usual. She also complains of a cough which has been of f and on ever since she was diagnosed with interstitial lung disease. She says that she sees Dr. Sanjeev owen on a regular basis. She had a pulmonary function test about a year ago and those results are vi ewable and have been reviewed and she did have significantly severe interstitial lung disease at that time in which her total lung capacity was only 26% predicted and there was also decreased diffusion capacity as well. She says that she is on home oxygen as a result and her steroid dose has been incr eased from 10 to 60 mg and she has been on 60 mg of prednisone since her hospitalization in January. Digna nix denies any fevers or chills, but she does complain of some nausea. She has not had any recent mout h sores. No unusual rash other than the redness in her legs. No alopecia. REVIEW OF SYSTEMS: All systems are reviewed and are negative except for that mentioned in the histor y of present illness. PAST MEDICAL HISTORY: Significant for systemic lupus erythematosus, interstitial lung disease with s evere restrictive defect, history of Raynaud syndrome, endometriosis and mixed connective tissue diso rder as well as depression. PAST SURGICAL HISTORY: She has had a x3, as well as a lung biopsy. ALLERGIES: No known drug allergies. SOCIAL HISTORY: She is and has 3 children. She is a former smoker. She occasionally drinks wine. FAMILY HISTORY: Significant for mother who has fibromyalgia. On her father's side, the women in the family had breast cancer, also hypertension and bipolar disorder. CURRENT MEDICATIONS: Include prednisone 60 mg daily, CellCept 3000 mg a day with 1500 in the morning and 1500 in the evening, Plaquenil 200 mg twice daily, Protonix 40 mg daily, Flexeril 10 mg t.i.d., albuterol inhaler p.r.n., Combivent inhaler twice a day, and Advair Diskus 250 one inhalation daily. PHYSICAL EXAMINATION: GENERAL: She is alert and oriented. She appears to be in some mild distress, primarily due to cough ing. VITAL SIGNS: Blood pressure was 125/88, heart rate 116, respiratory rate of 20, temperature is 98.5. HEENT: Her pupils are equal, round, and reactive. Extraocular muscles are intact. Her sclerae are anicteric. Throat, she has what appears to be geographic tongue. There are no specific oral lesions . NECK: On her neck, there was no adenopathy, no bruits. LUNGS: She has got decreased breath sounds at the bases. There are some rales in the upper lung fie lds and these are dry crackles actually, no wheezing. CARDIOVASCULAR: She has a normal S1 and S2. I did not appreciate an S3 or S4. The heart rate is ta chycardic. There were no murmurs, no clicks, no rubs. ABDOMEN: Obese, it is soft, it is nontender, nondistended. Positive for bowel sounds. There is no rebound, no guarding. EXTREMITIES: They are mildly erythematous and this is primarily in the feet and there is some purple discoloration of the toes and she does have some mild erythema in both hands. She does have some mo ttling appearance in the upper and lower extremities consistent with livedo reticularis. She has got palpable dorsalis pedis pulses bilaterally and there is good capillary refill. NEUROLOGIC: Her cranial nerves II-XII are intact. Muscle strength is 5/5 in both her upper and lowe r extremities. SKIN AND INTEGUMENT: She had no obvious rashes and no specific skin lesions. LABORATORY DATA: Her sodium was 136, potassium 4.1, chloride is 104, CO2 is 21, BUN of 9, creatinine 0.7, glucose is 111. Troponin is less than 0.010. test was negative. White blood cell c ount 14.3, hemoglobin 13.9, hematocrit is 44, platelet count is 254. D-dimer was 0.44. Urinalysis w as significant for positive leukocyte esterase. DIAGNOSTIC DATA: On her EKG, and this is by my reading, it is sinus tachycardia. The heart rate is 120. She has some voltage criteria for LVH and chest x-ray also by my reading, she has got decrease in lung capacity. It almost appears like a poor inspiratory effort or hypoinflation. There was no a irspace disease and no effusion. ASSESSMENT AND PLAN: This is a pleasant 27-year-old female that presents to the emergency room with complaints of the sudden and severe onset of bilateral foot pain which is very similar to her previou s lupus flares; however, a bit more severe. She also is tachycardic with a leukocytosis and a left s hift without an obvious source. She is immunosuppressed and therefore is likely unable to mount a fe viji response. Therefore, for the plan with regards to the foot and leg pain, this likely represents a lupus flare. 1. Systemic lupus flare. We will continue IV steroids and check a C3 and C4 complement levels as we ll as a lupus anticoagulant and double stranded DNA and monitor her clinically. 2. For the sinus tachycardia, it is unclear what the etiology of this it, could be sepsis, it could be a heart rate which is compensatory to her lung disease. It does not appear that she has had a rec ent echocardiogram; therefore, we will check an echo. We will place her on empiric antibiotics for s epsis. Follow up on the blood culture results and also get thyroid function test. 3. Interstitial lung disease. She has severe disease which has been documented by pulmonary functio n test. We will continue supplemental oxygen. Continue her usual neb treatments and consult her pul sharepoint application architect for further recommendations. She will be placed on deep venous thrombosis and continue he r gastrointestinal prophylaxis.
[2018-04-28] MEDS: HYDROcodone/Acetaminophen 5/325 mg Tablet PO PRN ×4 (00:31→20:25)
[2018-04-28] MEDS: Sodium Chloride 0.9% 1,000 ML IV SCH (05:21)
[2018-04-28 06:10] LABS: #Lymphocytes 0.7 thou/uL (1.20-3.40); #Monocytes 0.5 thou/uL (0.11-0.59); #Neutrophils 11.2 thou/uL (1.40-6.50); %Lymphocytes 5.8 % (21.0-51.0); %Monocytes 4.1 % (0.0-10.0); %Neutrophils 90.1 % (42.0-75.0); Hemoglobin 12.1 g/dL (12.0-16.0); Mean Corpuscular HGB CONC 30.7 g/dL (32.0-36.0); Mean Corpuscular Hemoglobin 28.7 pg (27.0-31.0); Mean Corpuscular Volume 93.7 fL (78.0-98.0); Mean Platelet Volume 7.7 fL (7.4-10.4); Platelet Count 249 thou/uL (130-400); RBC Distribution Width 12.8 % (11.5-14.5); Red Blood Cell (RBC) Count 4.22 mill/uL (4.20-5.40); White Blood Cell (WBC) Count 12.4 thou/uL (4.8-10.8)
[2018-04-28 06:32] LABS: Anion Gap 12 mmol/L (10-20); BUN (Urea Nitrogen) 11 mg/dL (7.0-18.7); Calc. Creatinine Clearance 172 mL/min (70-130); Calcium 8.3 mg/dL (7.8-10.44); Carbon Dioxide 21 mmol/L (22-29); Chloride 112 mmol/L (98-107); Estimated GFR-MDRD 87; Glucose 170 mg/dL (70-105); Potassium 4.3 mmol/L (3.5-5.1); Sodium 141 mmol/L (136-145)
[2018-04-28] MEDS: Mometasone/Formoterol 120 PUFF INHALER INH SCH ×2 (06:55→18:50)
[2018-04-28] MEDS: Enoxaparin Sodium 40 MG/0.4 ML SYRINGE SC SCH (09:09)
[2018-04-28] MEDS: Mycophenolate 250 MG CAP PO SCH ×2 (09:10→20:26)
[2018-04-28] MEDS: Hydroxychloroquine Sulfate 200 MG TAB PO SCH ×2 (09:10→20:27)
[2018-04-28] MEDS: methylPREDNISolone Sod Succ/PF 125 MG/2 ML VIAL IVP SCH (09:10)
--- NOTE | 2018-04-28 11:03 | PDOC.PN ---
- Subjective Encounter Start Date: 04/28/18 Encounter Start Time: 11:02 Ms. Isaacs was seen today in follow-up of SLE flare. She says the pain in her feet and legs is better. - Objective Resuscitation Status: Resuscitation Status FULL:Full Resuscitation MAR Reviewed: Yes Vital Signs & Weight: Vital Signs (12 hours) Temp Pulse Resp BP Pulse Ox 04/28/18 07:10 98.2 F 147 H 24 H 128/73 100 04/28/18 06:53 111 H 18 98 04/28/18 03:31 98.4 F 117 H 128/84 98 04/28/18 01:17 107 H 18 97 Weight Weight 225 lb 3 oz I&O: 04/27/18 04/28/18 04/29/18 06:59 06:59 06:59 Intake Total 1640 Balance 1640 Result Diagrams: 04/28/18 05:48 04/28/18 05:48 Phys Exam - Physical Examination HEENT: PERRLA, sclera anicteric Respiratory: no rhonchi, wheezing present, clear to auscultation bilateral + fine crackle bilateral, mild wheeze Cardiovascular: no significant murmur, no rub Tachycardic Gastrointestinal: soft, non-tender, no distention, positive bowel sounds Musculoskeletal: no edema Neurological: non-focal, moves all 4 limbs Psychiatric: normal affect, A&O x 3 Dx/Plan (1) SLE exacerbation Code(s): M32.9 - SYSTEMIC LUPUS ERYTHEMATOSUS, UNSPECIFIED Status: Acute (2) Inappropriate sinus tachycardia Code(s): R00.0 - TACHYCARDIA, UNSPECIFIED Status: Acute (3) ILD (interstitial lung disease) Code(s): J84.9 - INTERSTITIAL PULMONARY DISEASE, UNSPECIFIED Status: Chronic Comment: with acute exacerbation due to SLE - Plan * SLE flare- will continue IV Steroids, and continue her immune modulating medications Her Foot pain is better * Sinus Tachycardia- unclear what this is due to, possible from SLE, but this would be an uncommon presentation in the absence of Pericarditis- will follow- up with Echo, and Cardiology has been consulted. She does admit to having been diagnosed with a component of Mixed Connective Tissue Disorder. Continue empiric antibiotics, and follow-up of blood cultures for presumed sepsis * ILD- this appears stable- continue Duonebs, and IV steroids- Pulmonology has been consulted.
[2018-04-28] MEDS ORDERED: Fluticasone Propionate Nasal Spray 16 gm Bottle NASAL PRN (13:57)
[2018-04-28 14:02] VITALS: BMI 36.3
[2018-04-28] MEDS: Calcium Carbonate 600 MG TAB PO SCH (20:28)
--- NOTE | 2018-04-28 21:17 | CON ---
DATE OF SERVICE: 04/28/2018 Ms. Isaacs is a 27-year-old female with lupus. She has been seen by Dr. Galvan in the past. She do es not see him frequently because of lack of healthcare coverage. She presented with severe joint pain. She subsequently has been admitted. She said her pain got better and then got a little worse. She was felt to have a lupus flare. PAST MEDICAL HISTORY: Remarkable for, 1. Lupus. 2. History of interstitial lung disease. 3. History of Reynaud's. 4. History of endometriosis. 5. History of mixed connective tissue disorder. 6. History of three C-sections. 7. History of a lung biopsy. SOCIAL HISTORY: She is a nonsmoker, rarely drinks. She has no drug allergies. She has a an d 3 children. FAMILY HISTORY: Positive for cancer and hypertension. MEDICATIONS: Have been reviewed. She is on 60 mg prednisone when she came in as well as CellCept an d Plaquenil. PHYSICAL EXAMINATION: VITALS: She is afebrile, heart rate is 111-130, respiratory rate is 18-20, his oximetry is 100% on r oom air, blood pressure 120/73. HEENT: Pupils are equal. Sclerae is anicteric. NECK: Supple. LUNGS: Remarkable for crackles at her lung bases. HEART: Rapid regular rhythm. ABDOMEN: Soft, nontender. EXTREMITIES: She does have some mottling still in her lower extremities noted by Dr. Head on admis ryan. NEURO: Nonfocal. IMPRESSION: ? Lupus flare. I will be happy to follow along with the other physicians caring for him. Interstitial lung disease, probably stable from a chronic standpoint. There is no clinical evidence that she is having alveolar hemorrhage. A CT angiogram was done in the emergency department showing no change in her interstitial infiltrates .
--- NOTE | 2018-04-28 23:04 | CON ---
DATE OF CONSULTATION: 04/28/2018 IMPRESSION: Subtle cognitive impairment, subjective complaints without typical central nervous syste m vasculitis type symptomatology. PLAN: MRI of the brain with contrast. HISTORY OF PRESENT ILLNESS: Ms. Isaacs is a 27-year-old white female with a known history of lupus. 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 She has had rec urrent bouts of pain in her feet associated with her disease. She is followed by a mold unloader at [facility]. She is currently on Plaquenil and prednisone. She came in with recurrent foot melissa n. She was brought up the issue that she had some word finding difficulty and problems concentrating . Neurologic consultation was called for this very emergent problem. She denies any focal neurologi c symptoms, seizures, headaches, confusion or lapses of awareness. PAST MEDICAL HISTORY: Lupus. ALLERGIES: None. SOCIAL HISTORY: Unremarkable. FAMILY HISTORY: Noncontributory. REVIEW OF SYSTEMS: Otherwise, negative for any chest pain, shortness of breath. Slurred speech, dif ficulty swallowing or vision disturbances. PHYSICAL EXAMINATION: GENERAL: She is a well-nourished young woman who has multiple tattoos. HEENT: Within normal limits. NECK: Supple. EXTREMITIES: No cyanosis. NEUROLOGIC: She is alert and appropriate. Her speech is fluent and clear. Cranial nerves are intac t. Motor exam shows equal strength. There is no loss of sensation to light touch. No abnormal move ments were seen. EKG shows sinus tachycardia or sinus rhythm. LABORATORY STUDIES: Limited to urinalysis which showed positive blood and leukocytes. SUMMARY: A 27-year-old woman with a past history of lupus. She has some nonfocal neurologic complai nts is unlikely. 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 MRI of the brain should be adequate in ruling o ut any significant DEPARTMENT HEAD problems. She needs to follow up with her mold unloader for treatment of any of these conditions.
[2018-04-28] MEDS ORDERED: Morphine 2 MG/ML SYRINGE SLOW IVP SCH (23:45)
[2018-04-29] MEDS: Sodium Chloride 0.9% 1,000 ML IV SCH ×3 (00:03→09:58)
--- NOTE | 2018-04-29 01:05 | CON ---
DATE OF CONSULTATION: 04/28/2018 Rosio Isaacs is a 27-year-old white female with history of systemic lupus erythematosus. This started in 2012 with severe joint pains and swelling. She has had recent episode that awakened her yesterday morning with pain and redness in her feet. She does also have lung involvement with her lupus and has intermittent cough, as well as feeling of chest tightness at times. She has been found to have resting sinus tachycardia and Cardiology consultation is requested. PAST MEDICAL HISTORY: Systemic lupus erythematosus, interstitial lung disease, history of Raynaud syndrome, mixed connective tissue disorder, depression, endometriosis. OPERATIONS: Lung biopsy and x3. CURRENT MEDICATIONS: Prednisone 60 daily, CellCept 3000 mg a day - 1500 mg b.i.d., Plaquenil 200 mg b.i.d., Protonix 40 daily, Flexeril 10 mg t.i.d., albuterol inhaler, Combivent inhaler twice a day, Advair 1 inhalation daily. SOCIAL HISTORY: She smoked in the past. She occasionally drinks wine. FAMILY HISTORY: Negative for coronary artery disease. REVIEW OF SYSTEMS: Otherwise unremarkable. PHYSICAL EXAMINATION: VITAL SIGNS: Blood pressure 138/96, pulse ranging from 107 to 137 since she has been admitted. HEENT: PERRL. NECK: Supple. CHEST: Clear. CARDIAC: S1, S2 normal without any S3, S4, or murmurs. ABDOMEN: Obese. Normal bowel sounds. No tenderness. EXTREMITIES: No edema. She does not have any significant erythema of her feet at this time, but did yesterday. She has good dorsalis pedis and posterior tibial pulses. NEUROLOGIC: Grossly intact. SKIN: Warm and dry. LABORATORY AND X-RAY FINDINGS: EKG revealed sinus tachycardia with rate of 120 per minute, possible left ventricular hypertrophy. Echocardiogram revealed normal left ventricular function with moderate aortic insufficiency, mild tricuspid regurgitation, mild mitral regurgitation. White count 12,400, hemoglobin 12.1, hematocrit 39.5, white count 249,000. INR is 1.0. Sodium 141 , potassium 4.3, chloride 112, carbon dioxide 21, BUN 11, creatinine 0.78. TSH and free T4 are normal. Troponin I x1 is normal. IMPRESSION: 1. Sinus tachycardia. 2. Systemic lupus erythematosus flare. 3. Interstitial lung disease. 4. Possible sepsis. PLAN: From a cardiac standpoint, no specific therapy is needed. If her blood pressure continues to be somewhat elevated, then consideration will be given to addition of a beta chema. Hopefully, as her lupus flare resolves, her tachycardia will also resolve as her pain improves. ROGERIO
[2018-04-29] MEDS: HYDROcodone/Acetaminophen 5/325 mg Tablet PO PRN (05:36)
[2018-04-29 05:49] LABS: #Lymphocytes 0.9 thou/uL (1.20-3.40); #Neutrophils 15.7 thou/uL (1.40-6.50); %Basophils 0.1 % (0.0-1.0); %Lymphocytes 5.2 % (21.0-51.0); %Monocytes 5.4 % (0.0-10.0); %Neutrophils 89.3 % (42.0-75.0); Hemoglobin 12.4 g/dL (12.0-16.0); Mean Corpuscular HGB CONC 31.1 g/dL (32.0-36.0); Mean Corpuscular Hemoglobin 29.2 pg (27.0-31.0); Mean Platelet Volume 7.8 fL (7.4-10.4); Platelet Count 242 thou/uL (130-400); RBC Distribution Width 13.1 % (11.5-14.5); Red Blood Cell (RBC) Count 4.24 mill/uL (4.20-5.40); White Blood Cell (WBC) Count 17.6 thou/uL (4.8-10.8)
[2018-04-29 06:08] LABS: Anion Gap 10 mmol/L (10-20); BUN (Urea Nitrogen) 9 mg/dL (7.0-18.7); Calc. Creatinine Clearance 212 mL/min (70-130); Calcium 8.4 mg/dL (7.8-10.44); Carbon Dioxide 24 mmol/L (22-29); Chloride 107 mmol/L (98-107); Estimated GFR-MDRD Greater than 90; Glucose 97 mg/dL (70-105); Potassium 4.1 mmol/L (3.5-5.1); Sodium 137 mmol/L (136-145)
[2018-04-29] MEDS: Mometasone/Formoterol 120 PUFF INHALER INH SCH ×2 (06:59→18:23)
[2018-04-29] MEDS ORDERED: Loratadine 10 MG TAB PO SCH (09:00)
[2018-04-29] MEDS: Enoxaparin Sodium 40 MG/0.4 ML SYRINGE SC SCH (09:45)
[2018-04-29] MEDS: Mycophenolate 250 MG CAP PO SCH (09:49)
[2018-04-29] MEDS: Calcium Carbonate 600 MG TAB PO SCH (09:49)
[2018-04-29] MEDS: Hydroxychloroquine Sulfate 200 MG TAB PO SCH (09:50)
[2018-04-29] MEDS: methylPREDNISolone Sod Succ/PF 125 MG/2 ML VIAL IVP SCH (09:50)
[2018-04-29] MEDS ORDERED: Metoprolol Tartrate 25 MG TAB PO SCH ×2 (10:00→21:00)
--- NOTE | 2018-04-29 10:53 | PDOC.PN ---
- Subjective Encounter Start Date: 04/29/18 Encounter Start Time: 10:51 Ms. Isaacs was seen today in follow-up of SLE flare. She does not have any complaints. The foot pain has improved. - Objective Resuscitation Status: Resuscitation Status FULL:Full Resuscitation MAR Reviewed: Yes Vital Signs & Weight: Vital Signs (12 hours) Temp Pulse Resp BP Pulse Ox 04/29/18 06:44 101 H 18 98 04/29/18 03:41 98.1 F 104 H 20 128/84 96 04/28/18 23:57 116 H 16 97 Weight Admit Weight 222 lb 6.4 oz Weight 226 lb 4 oz I&O: 04/28/18 04/29/18 04/30/18 06:59 06:59 06:59 Intake Total 1640 2080 Output Total 500 Balance 1640 1580 Result Diagrams: 04/29/18 05:18 04/29/18 05:18 Phys Exam - Physical Examination HEENT: PERRLA Respiratory: no wheezing, no rhonchi + fine crackles at the bases, decreased breath sounds at the bases Cardiovascular: RRR, no significant murmur, no rub Gastrointestinal: soft, non-tender, no distention, positive bowel sounds Musculoskeletal: no edema, pulses present + mottling of the legs has improved, as well as the erythema Neurological: non-focal, moves all 4 limbs Dx/Plan (1) SLE exacerbation Code(s): M32.9 - SYSTEMIC LUPUS ERYTHEMATOSUS, UNSPECIFIED Status: Acute (2) Inappropriate sinus tachycardia Code(s): R00.0 - TACHYCARDIA, UNSPECIFIED Status: Acute (3) ILD (interstitial lung disease) Code(s): J84.9 - INTERSTITIAL PULMONARY DISEASE, UNSPECIFIED Status: Chronic Comment: with acute exacerbation due to SLE - Plan * SLE flare- unclear if her systems were due to Lupus or some other process. Her complement levels were normal, as well as the sed rate. The physical changes were present, and tachycardia is not explained. She may have some type of autonomic dysfunction. This can be followed up with her Carbon Paste Mixer Operator at [facility]. Unless there are any significant finding on MRI- will drop the Prednisone dose back down to 60mg a day * Tachycardia- Echo results noted- and Ux Manager input appreciated- will continue Metoprolol. * ILD- stable * Possible home later today if her MRI is negative
[2018-04-29 12:19] LABS: DRVVT Confirm 34.4; DRVVT Screen 32.8 SEC (20-50); HEX PHOS LA Tube 1 58.7 SEC; HEX PHOS LA Tube 2 50.5 SEC; Hexagonal Phospholipid Neut 8.2 SEC (0-8.0)
[2018-04-29 12:43] VITALS: BP 123/86; TEMP 98.2
--- NOTE | 2018-04-29 13:21 | PRG ---
DATE OF SERVICE: 04/29/2018 SERVICE: Pulmonary Medicine. INTERVAL HISTORY: The patient is doing really well from a respiratory standpoint. She is essentially at baseline. She has actually never had any breathing trouble when she presented to the Emergency Department. That being said, everybody always gets excitable about her oxygen, and her dyspnea. She primarily presented to the hospital because of the severe lower extremity discomfort that she had associated with bulging veins and redness of the legs. This has been going on and off for a period of time. Nobody has been able to provide her with relief for this thing. For that reason, she presented to the Emergency Department. She has been on all of her medications because she has a part of a drug program through [facility]. Otherwise, there has been no interval change to her condition. PHYSICAL EXAMINATION: VITAL SIGNS: Afebrile, pulse 104, blood pressure 120/84, respirations 20, saturation 96% on room air. GENERAL: The patient is awake, alert, no apparent distress. LUNGS: There are crackles present throughout bilateral lung ferrera. No wheezing or rhonchi otherwise appreciated. HEART: Tachycardic. Regular. ABDOMEN: Soft, nontender, nondistended. Bowel sounds are positive. MUSCULOSKELETAL: No cyanosis or clubbing. There is no pitting in the bilateral lower extremities. NEUROLOGIC: Grossly nonfocal. LABORATORY DATA: WBC 17.6, hemoglobin 12.4, platelets 242,000. Her ESR is actually low at 21. INR is normal. Basic metabolic profile is unremarkable. Serum and TSH are unremarkable. Lactate was previously negative. C3 and C4 fall within the normal limits. IMAGING DATA: Echocardiogram demonstrates normal ejection fraction. There is some aortic regurgitation noted. ASSESSMENT: 1. Systemic lupus erythematosus. 2. Interstitial lung disease associated with lupus, currently quiescent/at baseline. 3. Chronic hypoxic respiratory failure. 4. Lower extremity discomfort. DISCUSSION AND PLAN: If the MRI is unremarkable, I will put her back on her home medications, consider her for discharge out of the hospital. She will continue to follow acid reflux precautions for life and work on reducing weight 1-2 pounds per week by restricting caloric intake. I will see her in the outpatient setting as previously directed. We would like to schedule routine followup with her, but unfortunately, she does not have the funds to do so. As such, we will do our best to manage her through time and work with her restrictions to the best of our ability. ROGERIO
--- NOTE | 2018-04-29 14:57 | MRI ---
MRI BRAIN WITH AND WITHOUT CONTRAST: Technique: Multiplanar, multisequential imaging of brain obtained. Post contrast images obtained afte r administration of 20 cc MultiHance IV. Indications: Cognitive function related to Lupus. Rule out MS. FINDINGS: Ventricles have normal size and position. There is no evidence of intracranial mass or hemorrhage. Th ere is no evidence of restricted diffusion. No evidence of white matter abnormality. Review of the po st contrast images show no evidence of abnormal enhancement. The intracranial internal carotid arteri es, proximal cerebral arteries and basilar arteries show flow voids. The dural venous sinuses appear patent. Small mucous retention cysts in the floor of the left maxillary antrum measuring approximately 1 cm. Mastoid air cells appear clear. IMPRESSION: Unremarkable MRI of brain. No evidence of white matter abnormality. POS: [facility]
[2018-04-29 16:25] LABS: Cardiolipin IgG Ab 2.5 GPL-U/mL (<10 Negative); Cardiolipin IgM Ab 1.7 MPL-U/mL (<10 Negative); EliA APS New Method **** NEW METHOD ****; beta-2-Glycoprotein I IgM Abs Less than 2.9 U/mL (<7 Negative); dsDNA IgG Antibody 3.9 IU/mL (<10 Negative)
--- NOTE | 2018-04-29 23:13 | DIS ---
DATE OF ADMISSION: 04/27/2018 DATE OF DISCHARGE: 04/29/2018 PRIMARY CARE PHYSICIAN: At the [facility] DISCHARGE DISPOSITION: Home. PRIMARY DISCHARGE DIAGNOSES: 1. Probable systemic lupus erythematosus flare. 2. Inappropriate sinus tachycardia. 3. Interstitial lung disease. 4. Probable mixed connective tissue disorder. DISCHARGE MEDICATIONS: Include metoprolol 25 mg twice daily, prednisone 60 mg daily, Singulair 10 mg daily, Protonix 40 mg at bedtime, CellCept 1500 mg twice a day, Combivent 2 puffs q.i.d., Plaquenil 200 mg twice daily, Advair Diskus 250/50 one inhalation as needed, and Flexeril 10 mg 3 times a day a s needed. PROCEDURES DONE DURING ADMISSION: The patient had a CT angiogram of the chest which was negative for pulmonary embolism. The patient had some changes compatible with interstitial fibrosis. [facility] also had an [facility] in which the ejection fraction was estimated at 50-55%. There was moder ate aortic regurgitation, but overall, LV function was normal. The patient had an MRI of the brain w [facility] showed no evidence of any white matter abnormality. CODE STATUS: FULL CODE. ALLERGIES: No known drug allergies. HOSPITAL COURSE: Ms. Isaacs is a very pleasant 27-year-old female that presented to the emergency ro om with complaints of pain and swelling in both feet. She says this happens when she has had a lupus flare in the past. She described it as a crushing-like pain. It was also noted that she had a fair ly-elevated heart rate as well. She was admitted due to concerns for possible lupus flare and also p ossible sepsis given she is on multiple immunosuppressive medications including high dose steroids an d the immunosuppressive medication. Cultures were negative and her symptoms of the leg and foot pain improved. An MRI of the brain was done due to some complaints of some memory loss and cognitive per iodic decrease in cognition; however, the patient appeared her cognition was actually normal at the t claudia of this evaluation. Her MRI was negative. She was clinically stable and able to be discharged h [facility] and to have close followup with her primary care physician in approximately one week and also wit h her public health sanitarian as soon as possible.
== END 2018-04-29 20:03 | disposition home or self-care (01) | DRG 546 ==
LOC: ERS 10:55 → ERHOLD 16:10 → 2NO 18:00
PROVIDERS: ADMIT Internal Medicine; ATTEND Internal Medicine
DX: M32.9 Systemic lupus erythematosus, unspecified (principal); J84.9 Interstitial pulmonary disease, unspecified; M35.1 Other overlap syndromes; R00.0 Tachycardia, unspecified; I73.00 Raynaud's syndrome without gangrene; J45.909 Unspecified asthma, uncomplicated; F41.9 Anxiety disorder, unspecified; F32.9 Major depressive disorder, single episode, unspecified; Z87.891 Personal history of nicotine dependence; D72.829 Elevated white blood cell count, unspecified; I35.1 Nonrheumatic aortic (valve) insufficiency
CPT/HCPCS: 36415; 70553; 71045; 71275; 80048; 80053; 81003; 81015; 82550; 82553; 83605; 83690; 83880; 84439; 84443; 84484; 84703; 85025; 85240; 85250; 85379; 85598; 85610; 85613; 85652; 85730; 86146; 86147; 86160; 86225; 87040; 93005; 93306; 94640; 94664; 96361; 96365; 96367; 96375; J0696; J1100; J1650; J2185; J2270; J2930; J3010; J7517; J7620

== ENCOUNTER 2018-06-11 13:31 | Observation (INO) | payer OTHER, SELFPAY ==
--- NOTE | 2018-06-11 17:28 | RAD ---
RADIOGRAPH CHEST 1 VIEW: Date: 06-13-18 Time: 5:10 p.m. HISTORY: 27-year-old female with chest pain. History of lupus. COMPARISON: 04-27-18 FINDINGS: There are chronic appearing nodular interstitial infiltrates bilaterally. These appear slightly worse on the current study compared to the previous, but that could be due differences in technique. Lungs are very hypoinflated again. No new consolidation or pneumothorax. No interval change overall. IMPRESSION: 1. Chronic interstitial lung disease. 2. Severe hypoinflation of lungs. JN POS: [facility]
[2018-06-11 17:48] LABS: #Basophils 0.1 thou/uL (0.0-0.2); #Lymphocytes 0.6 thou/uL (1.20-3.40); #Monocytes 0.1 thou/uL (0.11-0.59); #Neutrophils 8.3 thou/uL (1.40-6.50); %Basophils 0.6 % (0.0-1.0); %Eosinophils 0.3 % (0.0-10.0); %Lymphocytes 6.7 % (21.0-51.0); %Monocytes 1.1 % (0.0-10.0); %Neutrophils 91.4 % (42.0-75.0); Hemoglobin 16.2 g/dL (12.0-16.0); Mean Corpuscular HGB CONC 32.6 g/dL (32.0-36.0); Mean Corpuscular Hemoglobin 29.8 pg (27.0-31.0); Mean Corpuscular Volume 91.5 fL (78.0-98.0); Platelet Count 265 thou/uL (130-400); RBC Distribution Width 13.8 % (11.5-14.5); Red Blood Cell (RBC) Count 5.42 mill/uL (4.20-5.40); White Blood Cell (WBC) Count 9.1 thou/uL (4.8-10.8)
[2018-06-11] MEDS ORDERED: methylPREDNISolone Sod Succ/PF 125 MG/2 ML VIAL ONE (17:56)
[2018-06-11 18:12] LABS: Anion Gap 16 mmol/L (10-20); BUN (Urea Nitrogen) 9 mg/dL (7.0-18.7); CK (CPK) 207 U/L (29-168); Calc. Creatinine Clearance 0 mL/min (70-130); Calcium 9.8 mg/dL (7.8-10.44); Carbon Dioxide 24 mmol/L (22-29); Chloride 103 mmol/L (98-107); Estimated GFR-MDRD 82; Glucose 108 mg/dL (70-105); Potassium 4.3 mmol/L (3.5-5.1); Sodium 139 mmol/L (136-145)
[2018-06-11 18:51] LABS: Bilirubin Negative (Negative); Blood, Urine Negative (Negative); Clarity CLEAR (Clear); Glucose, Urine (Dipstick) Negative (Negative); Leukocyte Negative (Negative); Nitrite Negative (Negative); Protein, Urine (Dipstick) Negative (Neg-Trace); Specific Gravity, Urine 1.017 (1.002-1.036); pH, Urine 6.5 (5.0-9.0)
[2018-06-11] MEDS ORDERED: Fentanyl 100 MCG/2 ML VIAL ONE (19:37)
[2018-06-11] MEDS ORDERED: diphenhydrAMINE 50 MG/ML VIAL ONE (19:45)
[2018-06-11] MEDS ORDERED: Acetaminophen 325 MG TAB PO PRN (21:29)
[2018-06-11] MEDS ORDERED: Ondansetron PF 4 MG/2 ML Vial IVP PRN (21:29)
[2018-06-11 21:44] LABS: Lactic Acid 1.9 mmol/L (0.5-2.2)
[2018-06-11 21:49] VITALS: BMI 35.4
[2018-06-11] MEDS ORDERED: Sodium Chloride 0.9% 1,000 ML IV SCH (22:15)
[2018-06-11] MEDS ORDERED: traMADol HCl 50 MG TAB PO PRN (23:33)
[2018-06-11] MEDS: Sodium Chloride 0.9% 1,000 ML IV SCH (23:50)
[2018-06-12 04:36] LABS: #Lymphocytes 0.7 thou/uL (1.20-3.40); #Monocytes 0.1 thou/uL (0.11-0.59); #Neutrophils 9.2 thou/uL (1.40-6.50); %Basophils 0.3 % (0.0-1.0); %Eosinophils 0.2 % (0.0-10.0); %Lymphocytes 6.6 % (21.0-51.0); %Monocytes 1.4 % (0.0-10.0); %Neutrophils 91.6 % (42.0-75.0); Hemoglobin 13.4 g/dL (12.0-16.0); Mean Corpuscular HGB CONC 33.2 g/dL (32.0-36.0); Mean Corpuscular Hemoglobin 30.4 pg (27.0-31.0); Mean Corpuscular Volume 91.6 fL (78.0-98.0); Mean Platelet Volume 7.8 fL (7.4-10.4); Platelet Count 218 thou/uL (130-400); RBC Distribution Width 13.4 % (11.5-14.5); Red Blood Cell (RBC) Count 4.41 mill/uL (4.20-5.40)
[2018-06-12 04:38] LABS: Anion Gap 12 mmol/L (10-20); BUN (Urea Nitrogen) 10 mg/dL (7.0-18.7); Calc. Creatinine Clearance 210 mL/min (70-130); Calcium 8.9 mg/dL (7.8-10.44); Carbon Dioxide 22 mmol/L (22-29); Chloride 109 mmol/L (98-107); Estimated GFR-MDRD Greater than 90; Glucose 146 mg/dL (70-105); Potassium 4.2 mmol/L (3.5-5.1); Sodium 139 mmol/L (136-145)
[2018-06-12] MEDS: Sodium Chloride 0.9% 1,000 ML IV SCH ×2 (04:53→13:03)
[2018-06-12] MEDS ORDERED: Cyclobenzaprine 10 MG TAB PO PRN (08:01)
[2018-06-12] MEDS ORDERED: tiZANidine HCl 4 MG TAB PO PRN (08:49)
[2018-06-12] MEDS ORDERED: Acetaminophen/Codeine 30-300mg Tablet PO PRN (08:54)
[2018-06-12] MEDS ORDERED: Enoxaparin Sodium 40 MG/0.4 ML SYRINGE SC SCH (09:00)
[2018-06-12] MEDS ORDERED: Mycophenolate 250 MG CAP PO SCH (09:00)
[2018-06-12] MEDS ORDERED: Metoprolol Tartrate 25 MG TAB PO SCH (09:00)
[2018-06-12] MEDS ORDERED: Hydroxychloroquine Sulfate 200 MG TAB PO SCH (09:00)
[2018-06-12 09:24] LABS: Magnesium 1.9 mg/dL (1.6-2.6); Phosphorus 3.4 mg/dL (2.3-4.7)
[2018-06-12 16:30] VITALS: BP 124/74; TEMP 98.4
--- NOTE | 2018-06-12 16:38 | PDOC.EVN ---
Event Note - Event Note Event Note: Ms. Isaacs was seen and discussed with Ms. Shashi CORTEZ. She is complaining of bilateral leg pain, which is similar to the pain she has during a lupus flare. on exam, she currently has no edema, or warmth, pulses are palpable, and her veins are prominent Vitamin D level was extremely low Agree with the plan outline by Ms. Danielle. Replace vitamin D stores, and isac steroids.
[2018-06-12] MEDS ORDERED: Mometasone/Formoterol 120 PUFF INHALER INH SCH (18:30)
--- NOTE | 2018-06-13 07:24 | SS ---
DATE OF ADMISSION: 06/11/2018 DATE OF DISCHARGE: 06/12/2018 PRIMARY CARE PHYSICIAN: Renard Chang MD. CONSULTANTS: None. PROCEDURES: 1. Chest x-ray, which showed;. a. Chronic interstitial lung disease. b. Severe hyperinflation of the lungs. DISCHARGE DIAGNOSES: 1. Probable systemic lupus erythematosus flare. 2. Inappropriate sinus tachycardia. 3. Interstitial lung disease. 4. Probable mixed connective tissue disorder. REVIEW OF SYSTEMS: The patient was examined this morning. Reported mild bilateral leg pain. Denied any erythema, warmth to extremities. Denied any belly pain, chest pain, shortness of breath or headache. Denied any fever or chills. All other systems were reviewed and are negative. PHYSICAL EXAMINATION: VITAL SIGNS: Temperature is 98.4, pulse is 106, on discharge 92. Respirations 16, pulse ox is 99% on room air, and blood pressure 142/83. CONSTITUTIONAL: The patient appears in no distress. She is alert and oriented to person, place and time. HEAD: Head is atraumatic and normocephalic. EYES: Pupils are equally round and reactive to light. Extraocular muscles are intact. ENT: Mouth exam is normal. Mucous membranes are moist. NECK: Trachea is midline. No meningeal signs. Normal range of motion. RESPIRATORY/CHEST: Breath sounds are clear. No respiratory distress. CARDIOVASCULAR: Mildly tachycardic pulse was 92 on exam. Heart sounds are normal S1, S2. ABDOMEN: Female. Nontender. Bowel sounds are heard. No distention. BACK: Normal inspection. Normal range of motion. No tenderness. EXTREMITIES: Upper extremities; inspection is normal. Range of motion is normal. Motor strength is normal. Sensation and radial pulses are intact bilaterally. Lower extremities; findings are normal. No erythema. No warmth. Mild tenderness on palpation, equal bilaterally. Motor strength is normal bilaterally. Sensation is intact. Pedal pulses are normal. No edema is noted. NEUROLOGIC: The patient is oriented to person, place, and time. Speech is normal. Cranial nerves intact. No focal or sensory motor deficits. SKIN: Warm, dry and normal in color. No rash. PSYCH: Normal affect. DIAGNOSTIC DATA: EKG in the emergency room showed sinus tach, at that point pulse was 109, conduction, ST segment and T-waves were normal, axis was normal, has some left ventricular hypertrophy. HOSPITAL COURSE: Ms. Isaacs is a 27-year-old female who reported to the emergency room on 06/11/2018 for evaluation of pain to bilateral lower legs. The patient reports a history of lupus, and suspected she was having a lupus flare. The patient reports chronic cough. She denies any headache or abdominal pain. The patient reported that she had measured the fever yesterday at 101 and that her pain was localized to bilateral legs from the legs down. When seen by us this morning, the patient's tachycardia had improved. The patient's pain, states that she is back to her baseline. Denied any new symptoms. She had been admitted for similar symptoms in April, at that time she had had a brain MRI, which was unremarkable. She had an echocardiogram, which showed an EF of 50% to 55% with some mild mitral regurgitation, moderate aortic regurgitation, mild tricuspid regurgitation. She also had a CTA of chest at that time, which showed some lung base interstitial changes and no evidence of any pulmonary emboli. The patient was admitted based on her symptoms and history. She was given 3 L of fluid. In the emergency room, she was given some Benadryl, fentanyl and Solu-Medrol. This morning, she was reporting the pain had improved. Her vital signs improved. Her pain improved. Discussion with Dr. Head took place and she agreed with the discharge plan. HOME MEDICATIONS: The patient will be continued on her, 1. Fluticasone/salmeterol, Advair inhaler one each inhale as needed. 2. Plaquenil 200 mg p.o. b.i.d. 3. DuoNeb inhaler 2 puffs q.i.d. 4. CellCept 1500 mg p.o. b.i.d. 5. Protonix 40 mg p.o. at bedtime. 6. Lopressor 25 mg p.o. b.i.d. 7. Her Flexeril will be discontinued. The following medications will be added on discharge: 1. Tylenol with Codeine 1 tab p.o. every 6 hours as needed for pain #20. 2. Gabapentin 300 mg p.o. t.i.d. 3. Her prednisone, she was on 60 mg that was refilled with instructions to reduce by 10 mg every 3 days and then to take 10 mg daily. 4. She was also taken off Flexeril and added Zanaflex 4 mg p.o. t.i.d. p.r.n. muscle cramps. ALLERGIES: SHE HAS NO KNOWN ALLERGIES. PAST MEDICAL HISTORY: Includes systemic lupus erythematosus, interstitial lung disease with severe restrictive defects, history of Raynaud's, endometriosis, mixed connective tissue disorder, and depression. PAST SURGICAL HISTORY: She has had C-sections x3 as well as a lung biopsy. SOCIAL HISTORY: She is with 3 children. She is a former smoker. She drinks occasionally. FAMILY HISTORY: Significant for mother who had fibromyalgia. On father's side, the woman in family have had breast cancer, hypertension, and bipolar disorder. PERTINENT LAB DATA: White blood cell count is 10, hemoglobin is 13.4, hematocrit is 40.3, and platelet count is 218. Sodium 139, potassium 4.2, chloride 109, carbon dioxide 22, gap is 12, BUN is 10, creatinine is 0.64, estimated GFR greater than 90, glucose 146. Lactic acid 2.7 and then 1.9. Calcium was 8.9, phosphorous 3.4, magnesium 1.9. CK was 207. Troponin was undetectable. Vitamin D level was 8.5. Urine culture and blood cultures were taken while she is in the emergency room in the preliminary status, all have no growth. DISPOSITION: The patient was discharged to home in stable condition. She has been asked to see her primary care physician, Dr. Chang within the next week, to see Dr. Galvan for her interstitial lung disease as scheduled. Job ID: [id number]
[2018-06-13] MEDS ORDERED: predniSONE 20 MG TAB PO SCH (08:00)
[2018-06-16] MEDS ORDERED: predniSONE 50 MG TAB PO SCH (08:00)
--- NOTE | 2018-06-17 14:41 | EKG ---
Test Reason : CP Blood Pressure : / mmHG Vent. Rate : 109 BPM Atrial Rate : 109 BPM P-R Int : 140 ms QRS Dur : 088 ms QT Int : 342 ms P-R-T Axes : 018 -17 004 degrees QTc Int : 460 ms Sinus tachycardia Left ventricular hypertrophy Biatrial enlargement Abnormal ECG Confirmed by KEYANA FULLER, LIDIA Diaz ([id number]), newspaper editor NABOR TINOCO ([id number]) on 06/17/2018 2:40:53 PM Referred By: Confirmed By:LIDIA RIDLEY MD
[2018-06-19] MEDS ORDERED: predniSONE 20 MG TAB PO SCH (08:00)
[2018-06-22] MEDS ORDERED: predniSONE 20 MG TAB PO SCH (08:00)
[2018-06-25] MEDS ORDERED: predniSONE 20 MG TAB PO SCH (08:00)
[2018-06-28] MEDS ORDERED: predniSONE 5 MG TAB PO SCH (08:00)
== END 2018-06-12 18:41 | disposition home or self-care (01) ==
LOC: ERS 13:31 → 2SW 19:45
PROVIDERS: ADMIT Hospitalist; ATTEND Hospitalist
DX: M79.662 Pain in left lower leg (principal); M79.661 Pain in right lower leg; R00.0 Tachycardia, unspecified; J84.9 Interstitial pulmonary disease, unspecified; F32.9 Major depressive disorder, single episode, unspecified; M32.9 Systemic lupus erythematosus, unspecified; I08.3 Combined rheumatic disorders of mitral, aortic and tricuspid valves; E55.9 Vitamin D deficiency, unspecified; Z87.891 Personal history of nicotine dependence; Z79.52 Long term (current) use of systemic steroids; Z79.899 Other long term (current) drug therapy
CPT/HCPCS: 36415; 71045; 80048; 81003; 82306; 82550; 83605; 83735; 84100; 84484; 85025; 85652; 86140; 87040; 87086; 93005; 94640; 96361; 96372; 96374; 96375; G0378; J1200; J1650; J2930; J3010; J7517; J7620

== ENCOUNTER 2018-07-01 21:37 | Emergency (ER) | payer OTHER, SELFPAY ==
[2018-07-01 22:23] LABS: #Eosinphils 0.1 thou/uL (0.0-0.7); #Lymphocytes 1.3 thou/uL (1.20-3.40); #Neutrophils 9.5 thou/uL (1.40-6.50); %Basophils 0.4 % (0.0-1.0); %Eosinophils 0.5 % (0.0-10.0); %Monocytes 8.2 % (0.0-10.0); Mean Corpuscular HGB CONC 32.4 g/dL (32.0-36.0); Mean Corpuscular Hemoglobin 29.8 pg (27.0-31.0); Mean Corpuscular Volume 91.9 fL (78.0-98.0); Mean Platelet Volume 8.2 fL (7.4-10.4); Platelet Count 227 thou/uL (130-400); Red Blood Cell (RBC) Count 5.05 mill/uL (4.20-5.40); White Blood Cell (WBC) Count 11.8 thou/uL (4.8-10.8)
[2018-07-01 22:24] LABS: Bilirubin Negative (Negative); Blood, Urine Small (Negative); Clarity CLOUDY (Clear); Glucose, Urine (Dipstick) Negative (Negative); Leukocyte Moderate (Negative); Nitrite Negative (Negative); Protein, Urine (Dipstick) 30 mg/dL (Neg-Trace); Specific Gravity, Urine 1.025 (1.002-1.036); Urobilinogen 0.2 mg/dL (0.2-1.0)
--- NOTE | 2018-07-01 22:24 | RAD ---
SINGLE VIEW OF THE CHEST: 07/01/18 COMPARISON: 06/11/18 HISTORY: Abdominal pain and sepsis. FINDINGS: Single view of the chest shows low lung volumes which accentuates the cardiomediastinal silhouette. T here is no evidence of consolidation, mass, or pleural effusion. IMPRESSION: No evidence of acute cardiopulmonary disease. POS: [facility]
[2018-07-01 22:27] LABS: Bacteria/HPF None Seen HPF (None Seen); Hyaline Casts/LPF 0-3 HYALINE CAST LPF (0-3 Hyaline); RBC/HPF 21-50 HPF (0-3); WBC/HPF 21-50 HPF (0-3)
[2018-07-01] MEDS ORDERED: Acyclovir 800 mg Tablet PO SCH (22:30)
[2018-07-01 22:45] LABS: ALT (SGPT) 22 U/L (8-55); AST (SGOT) 17 U/L (5-34); Albumin 3.8 g/dL (3.5-5.0); Alkaline Phosphatase 43 U/L (40-150); Anion Gap 15 mmol/L (10-20); BUN (Urea Nitrogen) 10 mg/dL (7.0-18.7); Bilirubin, Total 0.4 mg/dL (0.2-1.2); Calc. Creatinine Clearance 0 mL/min (70-130); Calcium 9.3 mg/dL (7.8-10.44); Carbon Dioxide 24 mmol/L (22-29); Chloride 107 mmol/L (98-107); Estimated GFR-MDRD 77; Globulin 3.3 g/dL (2.4-3.5); Glucose 78 mg/dL (70-105); Potassium 3.6 mmol/L (3.5-5.1); Protein, Total 7.1 g/dL (6.0-8.3); Sodium 142 mmol/L (136-145)
[2018-07-02] MEDS ORDERED: Morphine 4 MG/ML VIAL ONE (00:35)
[2018-07-02] MEDS ORDERED: diphenhydrAMINE 50 MG/ML VIAL ONE (00:36)
[2018-07-02 02:07] LABS: Pregnancy Test - Urine (BHCG) Negative (Negative); Pregu Control Background? CLEAR/WHITE (CLR/WHITE); Pregu Control Bar Appear? YES (CONTROL BAR)
[2018-07-02 02:08] LABS: Specific Gravity 1.025 (1.002-1.036)
--- NOTE | 2018-07-03 15:48 | EKG ---
Test Reason : Blood Pressure : / mmHG Vent. Rate : 101 BPM Atrial Rate : 101 BPM P-R Int : 142 ms QRS Dur : 094 ms QT Int : 334 ms P-R-T Axes : 019 -20 010 degrees QTc Int : 433 ms Sinus tachycardia Voltage criteria for left ventricular hypertrophy Abnormal ECG Confirmed by GEORGETTE MILLER DO ([id number]), market editor NABOR TINOCO ([id number] on 07/03/2018 3:48:04 PM Referred By: Confirmed By:GEORGETTE MILLER DO
== END 2018-07-02 00:52 | disposition home or self-care (01) ==
LOC: ERS 21:37
DX: B02.9 Zoster without complications (principal); N39.0 Urinary tract infection, site not specified; F41.9 Anxiety disorder, unspecified; F32.9 Major depressive disorder, single episode, unspecified; Z79.899 Other long term (current) drug therapy; J45.909 Unspecified asthma, uncomplicated
CPT/HCPCS: 36415; 71045; 80053; 81003; 81015; 81025; 83605; 85025; 87040; 87077; 87086; 87149; 87186; 93005; 96361; 96374; 96375; J1200; J2270

== ENCOUNTER 2018-07-20 18:11 | Emergency (ER) | payer SELFPAY ==
[2018-07-20 18:52] LABS: #Basophils 0.1 thou/uL (0.0-0.2); #Eosinphils 0.1 thou/uL (0.0-0.7); #Lymphocytes 2.3 thou/uL (1.20-3.40); #Monocytes 1.1 thou/uL (0.11-0.59); #Neutrophils 9.8 thou/uL (1.40-6.50); %Basophils 0.5 % (0.0-1.0); %Eosinophils 0.5 % (0.0-10.0); %Monocytes 8.6 % (0.0-10.0); %Neutrophils 73.5 % (42.0-75.0); Hemoglobin 15.1 g/dL (12.0-16.0); Mean Corpuscular HGB CONC 32.5 g/dL (32.0-36.0); Mean Corpuscular Hemoglobin 29.8 pg (27.0-31.0); Mean Corpuscular Volume 91.9 fL (78.0-98.0); Mean Platelet Volume 7.5 fL (7.4-10.4); Platelet Count 347 thou/uL (130-400); RBC Distribution Width 14.5 % (11.5-14.5); Red Blood Cell (RBC) Count 5.06 mill/uL (4.20-5.40); White Blood Cell (WBC) Count 13.4 thou/uL (4.8-10.8)
[2018-07-20 19:11] LABS: ALT (SGPT) 23 U/L (8-55); AST (SGOT) 20 U/L (5-34); Albumin 3.9 g/dL (3.5-5.0); Alkaline Phosphatase 37 U/L (40-150); Anion Gap 14 mmol/L (10-20); BUN (Urea Nitrogen) 11 mg/dL (7.0-18.7); Bilirubin, Total 0.7 mg/dL (0.2-1.2); Calc. Creatinine Clearance 0 mL/min (70-130); Calcium 9.4 mg/dL (7.8-10.44); Carbon Dioxide 21 mmol/L (22-29); Chloride 108 mmol/L (98-107); Estimated GFR-MDRD Greater than 90; Globulin 3.5 g/dL (2.4-3.5); Glucose 80 mg/dL (70-105); Lipase 56 U/L (8-78); Potassium 3.8 mmol/L (3.5-5.1); Protein, Total 7.4 g/dL (6.0-8.3); Sodium 139 mmol/L (136-145)
--- NOTE | 2018-07-20 20:54 | RAD ---
RADIOGRAPH CHEST 1 VIEW: Date: 07/20/2018 Time: 7:58 p.m. HISTORY: A 27-year-old female with cough and pleuritic chest pain. COMPARISON: 07/01/2018 FINDINGS: The lungs are very hypoinflated, similar to prior study. There are diffusely prominent interstitial markings. In the right mid lung field, there is a questionable new, approximately 1 x 1.5 cm, focal nodular density versus artifact. No pneumothorax. No other interval change. IMPRESSION: 1. Limited study because of very hypoinflated lungs. 2. Prominent interstitial markings bilaterally. JN [] POS: JUAN MIGUEL
[2018-07-20] MEDS ORDERED: Ondansetron PF 4 MG/2 ML Vial ONE (21:29)
[2018-07-20 21:41] LABS: Bilirubin Negative (Negative); Blood, Urine Negative (Negative); Clarity CLOUDY (Clear); Glucose, Urine (Dipstick) Negative (Negative); Leukocyte Moderate (Negative); Nitrite Negative (Negative); Protein, Urine (Dipstick) Trace mg/dL (Neg-Trace); Specific Gravity, Urine 1.026 (1.002-1.036); Urobilinogen 0.2 mg/dL (0.2-1.0)
[2018-07-20 21:42] LABS: Pregnancy Test - Urine (BHCG) Negative (Negative); Pregu Control Background? CLEAR/WHITE (CLR/WHITE); Pregu Control Bar Appear? YES (CONTROL BAR); Specific Gravity 1.026 (1.002-1.036)
[2018-07-20 21:43] LABS: Squamous Epithelial 21-50 HPF (0-3); WBC/HPF 21-50 HPF (0-3); Yeast-AUWi Flag 21.9 (0-25.0)
[2018-07-20 21:44] LABS: Pathc Cast-AUWi Flag 3.77 (0-2.49)
[2018-07-20 21:52] LABS: Bacteria/HPF 3+ HPF (None Seen); RBC/HPF 0-3 HPF (0-3)
[2018-07-20 21:53] LABS: Hyaline Casts/LPF 0-3 HYALINE CAST LPF (0-3 Hyaline)
[2018-07-20 21:54] LABS: Crystals/HPF 1+ CA OXALATE HPF (Negative)
== END 2018-07-20 23:10 | disposition home or self-care (01) ==
LOC: ERS 18:11
DX: N39.0 Urinary tract infection, site not specified (principal); E86.0 Dehydration; R19.7 Diarrhea, unspecified
CPT/HCPCS: 36415; 71045; 80053; 81003; 81015; 81025; 83605; 83690; 85025; 87040; 87086; 87804; 96361; 96374; J2405

== ENCOUNTER 2018-08-08 10:20 | Inpatient (IN) | payer OTHER, SELFPAY ==
[2018-08-08] MEDS ORDERED: cefTRIAXone\\ROCEPHIN 2 GM VIAL ONE (11:02)
[2018-08-08] MEDS ORDERED: Azithromycin 500 MG VIAL ONE (11:02)
[2018-08-08 11:13] LABS: #Lymphocytes 1.2 thou/uL (1.20-3.40); #Monocytes 0.5 thou/uL (0.11-0.59); #Neutrophils 13.2 thou/uL (1.40-6.50); %Basophils 0.2 % (0.0-1.0); %Lymphocytes 7.8 % (21.0-51.0); %Monocytes 3.2 % (0.0-10.0); %Neutrophils 88.8 % (42.0-75.0); Hemoglobin 14.7 g/dL (12.0-16.0); Mean Corpuscular HGB CONC 31.2 g/dL (32.0-36.0); Mean Corpuscular Hemoglobin 29.2 pg (27.0-31.0); Mean Corpuscular Volume 93.6 fL (78.0-98.0); Platelet Count 262 thou/uL (130-400); RBC Distribution Width 13.8 % (11.5-14.5); Red Blood Cell (RBC) Count 5.06 mill/uL (4.20-5.40); White Blood Cell (WBC) Count 14.8 thou/uL (4.8-10.8)
[2018-08-08 11:32] LABS: ALT (SGPT) 21 U/L (8-55); AST (SGOT) 14 U/L (5-34); Albumin 3.7 g/dL (3.5-5.0); Alkaline Phosphatase 49 U/L (40-150); Anion Gap 15 mmol/L (10-20); BUN (Urea Nitrogen) 12 mg/dL (7.0-18.7); Calc. Creatinine Clearance 0 mL/min (70-130); Calcium 9.6 mg/dL (7.8-10.44); Carbon Dioxide 22 mmol/L (22-29); Chloride 106 mmol/L (98-107); Estimated GFR-MDRD 79; Globulin 3.8 g/dL (2.4-3.5); Glucose 114 mg/dL (70-105); Potassium 4.4 mmol/L (3.5-5.1); Protein, Total 7.5 g/dL (6.0-8.3); Sodium 139 mmol/L (136-145)
--- NOTE | 2018-08-08 11:57 | RAD ---
PORTABLE CHEST: Date: 08/08/18 HISTORY: Shortness of breath. Productive cough. Chest soreness. FINDINGS: Film is of suboptimal inspiration. Heart size is enlarged. There are some bibasilar lung changes, pro bably on the basis of atelectasis. Retrocardiac region is not well assessed on this exam. IMPRESSION: Cardiomegaly with some bibasilar mainly interstitial appearing lung changes suggesting atelectasis. R etrocardiac region is not well visualized. POS: JUAN MIGUEL
[2018-08-08] MEDS ORDERED: Acyclovir Sodium 1,000 MG in Sodium Chloride 0.9% 250 ML 250 ML IVPB SCH ×2 (12:30→21:00)
[2018-08-08] MEDS ORDERED: Acetaminophen 325 MG TAB PO PRN (15:03)
[2018-08-08] MEDS ORDERED: Ondansetron PF 4 MG/2 ML Vial IVP PRN (15:22)
[2018-08-08] MEDS ORDERED: cefTRIAXone Sodium 1,000 MG in Syringe 0 ML IVPB SCH (15:22)
[2018-08-08 15:33] VITALS: BMI 34.1
--- NOTE | 2018-08-08 18:42 | HP ---
HISTORY OF PRESENT ILLNESS: Ms. Isaacs is a 27-year-old woman. She has been experiencing some increasing shortness of breath over the last 2 days also along with productive cough and fever. She came to the ER earlier today. She was noticed to be hypoxic on room air and she was felt to have pneumonia, for which she is being admitted. She has diarrhea on and off. She denies vomiting. PAST MEDICAL HISTORY: Her past medical history is remarkable for lupus. She also have interstitial lung disease secondary to lupus. She denies any history of hypertension, diabetes, heart disease, or liver disease. PAST SURGICAL HISTORY: Remarkable and also she had previous lung biopsy. ALLERGIES: SHE DOES NOT HAVE ANY KNOWN ALLERGY. SOCIAL HISTORY: She quit smoking about 14 years ago. She used to drink socially. She denies substance abuse. FAMILY HISTORY: Reviewed and is not contributory. MEDICATIONS: Prior to admission, she was on; 1. CellCept 1500 mg b.i.d. 2. Advair Diskus daily. 3. Plaquenil 200 mg twice a day. 4. Prednisone 40 mg daily. 5. DuoNeb p.r.n. REVIEW OF SYSTEMS: CONSTITUTIONAL: She admit to fever, generalized weakness. HEENT: No headache. No ocular pain. No sore throat. No rhinorrhea. No earache. No epistaxis. NECK: No neck pain. No neck stiffness. CARDIOVASCULAR: Some shortness of breath. PULMONARY: Productive cough and also some pleuritic chest pain. GASTROINTESTINAL: Diarrhea on and off. No vomiting. GENITOURINARY: No dysuria. No hematuria. HEMATOLOGY: No abnormal bleeding. No ecchymosis. LYMPHATIC: No palpable lymphadenopathy. No painful lymphadenopathy. SKIN: She was examined by the ER physician and she has some perirectal ulcer and this is the same area where she had herpes zoster previously. ALLERGY: No hay fever. NEUROLOGICAL: She claims to have no control over her sphincters, urinary and anal. PSYCHIATRY: Admit to anxiety and depression. ENDOCRINOLOGY: No heat or cold intolerance. No polyuria, polydipsia, or polyphagia. MUSCULOSKELETAL: Admit to arthralgia. PHYSICAL EXAMINATION: GENERAL: At the current time, she is alert, oriented, receiving oxygen via nasal cannula. VITAL SIGNS: Her latest vital signs show a temperature of 98.1, pulse rate 119, respiratory rate 20, and blood pressure 115/76. HEENT: Her head is normocephalic and atraumatic. Both her pupils are equal and reactive. Ears and nose, normal. Oral mucosa is moist. There is no oral ulcer. Pharyngeal area is clear. NECK: Supple. There is no distention of the jugular vein. No lymphadenopathy felt. Thyroid gland not palpable. There is no carotid bruit. CHEST: Symmetrical with regular S1 and S2. LUNGS: Show few rhonchi. ABDOMEN: Soft. Bowel sounds heard. We could not appreciate any organomegaly. LYMPHS: Show no edema. NEUROLOGIC: She moves all extremities. LABORATORY DATA: CBC show a WBC of 14.8, hemoglobin of 14.7, hematocrit of 47.3 , MCV of 93.6, and platelet 262. Chemistry and lytes show a sodium of 139, potassium 4.4, chloride 106, CO2 of 22, BUN 12, creatinine 0.85, glucose 114, lactic acid 2.1, calcium 9.6, total bilirubin 1, AST 14, ALT 21, alkaline phosphatase 49, total protein 7.5, albumin 3.7, and globulin 3.8. IMAGING DATA: Chest x-ray was reported to show cardiomegaly with some bibasilar interstitial appearance of her lungs suggestive of atelectasis. . ASSESSMENT AND PLAN: This is a 27-year-old woman with history of lupus, interstitial lung disease secondary to lupus, who was treated for herpes zoster in June of this year, came in with shortness of breath, productive cough, who was found to have nonhealing ulcer in the perirectal area by the ER physician. At this time, she will be treated for pneumonia and also she will be on acyclovir for herpes zoster. She is taking very high dose of immunosuppressive medication, we will consult Rheumatology. She will be admitted to the medical floor. Further evaluation and management will depend on the course of her hospitalization and her response to therapy. Job ID: [id number] [facility]
[2018-08-08] MEDS: Metoprolol Tartrate 25 MG TAB PO SCH (20:57)
[2018-08-08] MEDS: Mycophenolate 250 MG CAP PO SCH (20:57)
[2018-08-08] MEDS: Hydroxychloroquine Sulfate 200 MG TAB PO SCH (20:57)
[2018-08-08] MEDS ORDERED: predniSONE 20 MG TAB PO SCH ×2 (21:00→23:00)
[2018-08-08] MEDS ORDERED: Hydroxychloroquine Sulfate 200 MG TAB PO SCH (21:00)
[2018-08-08] MEDS ORDERED: Sodium Chloride 0.9% 1,000 ML IV SCH (21:15)
[2018-08-08] MEDS: Sodium Chloride 0.9% 1,000 ML IV SCH (21:30)
[2018-08-08] MEDS ORDERED: Azithromycin 500 MG in Sodium Chloride 0.9% 250 ML 250 ML IVPB SCH (23:00)
[2018-08-08] MEDS: tiZANidine HCl 4 MG TAB PO PRN (23:09)
[2018-08-09] MEDS: Benzonatate 100 MG CAP PO PRN ×2 (00:49→09:00)
[2018-08-09 03:15] LABS: #Basophils 0.1 thou/uL (0.0-0.2); #Lymphocytes 0.3 thou/uL (1.20-3.40); #Monocytes 0.2 thou/uL (0.11-0.59); #Neutrophils 8.2 thou/uL (1.40-6.50); %Eosinophils 0.2 % (0.0-10.0); %Lymphocytes 3.9 % (21.0-51.0); %Monocytes 2.5 % (0.0-10.0); %Neutrophils 92.4 % (42.0-75.0); Hemoglobin 13.1 g/dL (12.0-16.0); Mean Corpuscular HGB CONC 31.8 g/dL (32.0-36.0); Mean Corpuscular Volume 94.5 fL (78.0-98.0); Mean Platelet Volume 7.9 fL (7.4-10.4); Platelet Count 156 thou/uL (130-400); RBC Distribution Width 13.5 % (11.5-14.5); Red Blood Cell (RBC) Count 4.37 mill/uL (4.20-5.40); White Blood Cell (WBC) Count 8.9 thou/uL (4.8-10.8)
[2018-08-09 03:38] LABS: Anion Gap 13 mmol/L (10-20); BUN (Urea Nitrogen) 7 mg/dL (7.0-18.7); Calc. Creatinine Clearance 209 mL/min (70-130); Calcium 8.5 mg/dL (7.8-10.44); Carbon Dioxide 21 mmol/L (22-29); Chloride 109 mmol/L (98-107); Estimated GFR-MDRD Greater than 90; Glucose 129 mg/dL (70-105); Potassium 4.2 mmol/L (3.5-5.1); Sodium 139 mmol/L (136-145)
[2018-08-09] MEDS ORDERED: Acyclovir Sodium 650 MG in Sodium Chloride 0.9% 100 ML IVPB SCH (06:00)
[2018-08-09] MEDS ORDERED: predniSONE 20 MG TAB PO SCH (08:00)
[2018-08-09] MEDS: Hydroxychloroquine Sulfate 200 MG TAB PO SCH ×2 (08:47→20:57)
[2018-08-09] MEDS: Metoprolol Tartrate 25 MG TAB PO SCH ×2 (08:48→20:57)
[2018-08-09] MEDS: Mycophenolate 250 MG CAP PO SCH ×2 (08:49→21:00)
[2018-08-09] MEDS: Enoxaparin Sodium 40 MG/0.4 ML SYRINGE SC SCH (09:00)
[2018-08-09] MEDS: tiZANidine HCl 4 MG TAB PO PRN (09:00)
[2018-08-09] MEDS ORDERED: Acyclovir Sodium 1,000 MG in Sodium Chloride 0.9% 250 ML 250 ML IVPB SCH (09:00)
[2018-08-09] MEDS: Sodium Chloride 0.9% 1,000 ML IV SCH (09:07)
[2018-08-09] MEDS: Morphine 4 MG/ML VIAL SLOW IVP PRN ×2 (09:11→19:29)
--- NOTE | 2018-08-09 09:15 | PDOC.PN ---
- Subjective Encounter Start Date: 08/09/18 Encounter Start Time: 08:40 -: +SOB, Productive cough.. - Objective Vital Signs & Weight: Vital Signs (12 hours) Temp Pulse Resp BP Pulse Ox 08/09/18 08:00 98.1 F 91 22 H 112/61 95 08/09/18 05:00 98/60 08/09/18 04:10 97.9 F 85 16 93/60 100 08/09/18 00:00 99.3 F 100 18 126/84 100 Weight Weight 218 lb I&O: 08/08/18 08/09/18 08/10/18 06:59 06:59 06:59 Intake Total 480 Balance 480 Result Diagrams: 08/09/18 03:00 08/09/18 03:00 Phys Exam - Physical Examination Constitutional: NAD (On O2 via N/C.) Neck: no JVD Respiratory: no rales Cardiovascular: RRR Gastrointestinal: soft Musculoskeletal: no edema Neurological: moves all 4 limbs Psychiatric: A&O x 3 Dx/Plan (1) Perineal ulcer Code(s): L98.499 - NON-PRESSURE CHRONIC ULCER OF SKIN OF SITES W UNSP SEVERITY Status: Acute Plan: Due to herpes.. On Acyclovir. (2) ILD (interstitial lung disease) Code(s): J84.9 - INTERSTITIAL PULMONARY DISEASE, UNSPECIFIED Status: Chronic Comment: With hypoxemia. Pulmonary consulted. (3) Lupus (systemic lupus erythematosus) Code(s): M32.9 - SYSTEMIC LUPUS ERYTHEMATOSUS, UNSPECIFIED Status: Chronic Plan: No clinical evidence of acute flare .. Check C3,C4 (4) Obesity (BMI 30.0-34.9) Code(s): E66.9 - OBESITY, UNSPECIFIED Status: Chronic Plan: counseled. (5) Pneumonia Code(s): J18.9 - PNEUMONIA, UNSPECIFIED ORGANISM Status: Acute Comment: Pneumonia Vs atelectasis. Pulmonary consulted.. - Plan -: Continue Acyclovir, immunosuppressants. -: f/u with pulmonary. -: Consider rheumatology evaluation. * .
[2018-08-09] MEDS: Azithromycin 500 MG in Sodium Chloride 0.9% 250 ML 250 ML IVPB SCH (11:11)
[2018-08-09] MEDS: Acyclovir Sodium 650 MG in Sodium Chloride 0.9% 100 ML IVPB SCH ×2 (12:49→20:56)
[2018-08-09] MEDS: cefTRIAXone\\ROCEPHIN 1 GM in Sodium Chloride 0.9% 100 ML IVPB SCH (12:51)
[2018-08-09] MEDS ORDERED: Sodium Chloride 3% (15 ML) NEB NEB SCH (14:00)
--- NOTE | 2018-08-09 14:31 | CON ---
DATE OF CONSULTATION: 08/09/2018 SERVICE: Pulmonary Medicine. REASON FOR CONSULTATION: Acute hypoxic respiratory failure. HISTORY OF PRESENT ILLNESS: The patient is a 27-year-old white female with past medical history significant for lupus. She also has interstitial lung disease associated with that diagnosis. She is on chronic immunosuppressive medication. I follow her every time again in the outpatient setting, but she is finding it comes and goes and so she has a difficult time maintaining her appointments. Either way, she was in her usual state of health until about 3 or 4 days prior to admission. Her daughter was sick. She was in contact with her sick daughter. She started having some sputum production, fevers, chills, and increasing cough. She typically coughs all the time, but usually does not bring much up. She started bringing up thick green sputum. Otherwise, there is no interval change to her condition. She was having some night sweats and fevers. She came to the emergency department because of increasing dyspnea. Chest x-ray suggested that she had possible bibasilar pneumonia. She subsequently was admitted to the hospital. PAST MEDICAL HISTORY: 1. Chronic hypoxic respiratory failure. 2. Interstitial lung disease secondary to systemic lupus erythematosus. 3. Systemic lupus erythematosus. 4. Asthma. 5. Major depressive disorder. 6. Immunosuppression chronically. 7. Recent diagnosis of herpes zoster. PAST SURGICAL HISTORY: section x2. ALLERGIES: NO KNOWN DRUG ALLERGIES. MEDICATIONS: List of her inpatient medications was reviewed. No specific updates were made at this time. FAMILY HISTORY: Noncontributory. SOCIAL HISTORY: Negative for alcohol, tobacco, or illicit drug use. She has 2 children at home. She is . She has no exposure to chemicals, dust, asbestos, or tuberculosis. She is a lifelong nonsmoker and has never used any illicit drugs. REVIEW OF SYSTEMS: General; head, ears, eyes, nose, throat; cardiovascular; respiratory; GI; ; musculoskeletal; neurologic; and skin are negative except as mentioned in the HPI. PHYSICAL EXAMINATION: VITAL SIGNS: Afebrile, pulse 66, blood pressure 106/72, respirations 30, and saturation 99% on 2 L nasal cannula. GENERAL: The patient is awake and alert, in no apparent distress. LUNGS: Extensive crackles are present in bibasilar regions. There is some rhonchi. They clear with cough. HEART: Normal rate and regular. ABDOMEN: Soft, nontender, and nondistended. Bowel sounds are positive. MUSCULOSKELETAL: No cyanosis or clubbing. No pitting in the bilateral lower extremities. NEUROLOGIC: Grossly nonfocal. LABORATORY DATA: WBC 14.8 is downtrending to 8.9, hemoglobin 13.1, and platelets 156,000. Basic metabolic profile and liver function studies are essentially unremarkable. Lactate was 3.0. Previous ANCA, C3 and C4 fell within the normal limits. Anticardiolipin antibodies are essentially unremarkable other than a weakly positive IgA antibody. Syphilis and hepatitis B surface antigen are unremarkable. TPMT activity was normal. Blood cultures x2 are negative today. Influenza A and B are unremarkable. IMAGING DATA: Chest x-ray demonstrates very low lung volumes. Cardiomegaly is noted, but this is likely accentuated from her low lung volumes. She has bibasilar interstitial, and alveolar infiltrates. ASSESSMENT: 1. Acute on chronic hypoxic respiratory failure. 2. Interstitial lung disease secondary to systemic lupus erythematosus. 3. Chronic immunosuppression. 4. Community-acquired pneumonia. 5. Herpes zoster rash on the buttock. DISCUSSION AND PLAN: We will continue our empiric antibiotics and home medications for the lupus. I will to collect a sputum for culture. We will also do a respiratory virus panel because of her recent sick contact. The patient will remain in the hospital until some of these results return. She is currently on acyclovir, which should help with the rash. ID consultation will be considered if she does not respond to conventional therapy. Job ID: [id number]
[2018-08-09] MEDS: predniSONE 20 MG TAB PO SCH (20:57)
[2018-08-10] MEDS: tiZANidine HCl 4 MG TAB PO PRN ×2 (02:42→09:50)
[2018-08-10] MEDS: Acyclovir Sodium 650 MG in Sodium Chloride 0.9% 100 ML IVPB SCH ×3 (03:29→20:27)
[2018-08-10] MEDS: Benzonatate 100 MG CAP PO PRN (03:33)
[2018-08-10] MEDS: Morphine 4 MG/ML VIAL SLOW IVP PRN ×2 (09:50→17:51)
[2018-08-10] MEDS: Mycophenolate 250 MG CAP PO SCH ×2 (09:52→20:27)
[2018-08-10] MEDS: Metoprolol Tartrate 25 MG TAB PO SCH ×2 (09:53→20:27)
[2018-08-10] MEDS: Hydroxychloroquine Sulfate 200 MG TAB PO SCH ×2 (09:53→20:27)
[2018-08-10] MEDS: Enoxaparin Sodium 40 MG/0.4 ML SYRINGE SC SCH (09:53)
[2018-08-10] MEDS: Azithromycin 500 MG in Sodium Chloride 0.9% 250 ML 250 ML IVPB SCH (10:06)
--- NOTE | 2018-08-10 11:57 | PDOC.PN ---
- Subjective Encounter Start Date: 08/10/18 Encounter Start Time: 11:55 Subjective: mild sob, pain in herpetic lesions on buttocks - Objective MAR Reviewed: Yes Vital Signs & Weight: Vital Signs (12 hours) Temp Pulse Resp BP Pulse Ox 08/10/18 08:00 97.8 F 47 L 23 H 175/80 H 98 Weight Weight 218 lb I&O: 08/09/18 08/10/18 08/11/18 06:59 06:59 06:59 Intake Total 480 2920 Output Total 450 Balance 480 2920 -450 Result Diagrams: 08/09/18 03:00 08/09/18 03:00 Phys Exam - Physical Examination fine rales diffusely Cardiovascular: RRR, no significant murmur Gastrointestinal: soft, positive bowel sounds Musculoskeletal: no edema Dx/Plan (1) Acute and chronic respiratory failure with hypoxia Code(s): J96.21 - ACUTE AND CHRONIC RESPIRATORY FAILURE WITH HYPOXIA Status: Acute (2) SLE exacerbation Code(s): M32.9 - SYSTEMIC LUPUS ERYTHEMATOSUS, UNSPECIFIED Status: Chronic (3) Asthma Code(s): J45.909 - UNSPECIFIED ASTHMA, UNCOMPLICATED Status: Chronic Qualifiers: Asthma severity: unspecified severity Asthma persistence: unspecified (4) ILD (interstitial lung disease) Code(s): J84.9 - INTERSTITIAL PULMONARY DISEASE, UNSPECIFIED Status: Chronic Comment: With hypoxemia. Pulmonary consulted. (5) Lupus (systemic lupus erythematosus) Code(s): M32.9 - SYSTEMIC LUPUS ERYTHEMATOSUS, UNSPECIFIED Status: Chronic Qualifiers: Systemic lupus erythematosus type: unspecified Systemic lupus erythematosus organ involvement: other Qualified Code(s): M32.19 - Other organ or system involvement in systemic lupus erythematosus - Plan cont antivirals and antibx -: cultures , etc pending -: ccont O2, nebs, prednisone * .
[2018-08-10] MEDS: cefTRIAXone\\ROCEPHIN 1 GM in Sodium Chloride 0.9% 100 ML IVPB SCH (13:55)
[2018-08-10] MEDS: Oseltamivir 75 MG CAP PO SCH (20:27)
[2018-08-10] MEDS: predniSONE 20 MG TAB PO SCH (20:27)
[2018-08-10] MEDS ORDERED: Calamine/Zinc Oxide 177 ML LOTION TP PRN (23:38)
[2018-08-11] MEDS: tiZANidine HCl 4 MG TAB PO PRN ×2 (00:10→12:01)
[2018-08-11] MEDS: Acyclovir Sodium 650 MG in Sodium Chloride 0.9% 100 ML IVPB SCH ×3 (03:16→19:59)
[2018-08-11] MEDS: Metoprolol Tartrate 25 MG TAB PO SCH ×2 (08:14→19:59)
[2018-08-11] MEDS: Oseltamivir 75 MG CAP PO SCH ×2 (08:16→19:59)
[2018-08-11] MEDS: Hydroxychloroquine Sulfate 200 MG TAB PO SCH ×2 (08:16→19:59)
[2018-08-11] MEDS: Enoxaparin Sodium 40 MG/0.4 ML SYRINGE SC SCH (08:16)
[2018-08-11] MEDS: Mycophenolate 250 MG CAP PO SCH ×2 (09:14→19:59)
--- NOTE | 2018-08-11 09:33 | PRG ---
DATE OF SERVICE: 08/10/2018 SERVICE: Pulmonary Medicine. INTERVAL HISTORY: The patient is really doing okay. She has a lot of malaise. She is still coughing and bringing up some yellow phlegm. She denies any current fevers, chills, nausea, or vomiting. Otherwise, there were no significant overnight events. PHYSICAL EXAMINATION: VITAL SIGNS: Afebrile, pulse 86, blood pressure 141/82, respirations 22, and saturation 94% on room air. GENERAL: The patient is awake and alert, in no apparent distress. LUNGS: Decent air entry. There is no prolonged expiratory phase or wheezing present. HEART: Normal rate and regular. ABDOMEN: Soft, nontender, and nondistended. Bowel sounds are positive. MUSCULOSKELETAL: No cyanosis or clubbing. There is no pitting in the bilateral lower extremities. NEUROLOGIC: Grossly nonfocal. LABORATORY DATA: Blood cultures x2, and influenza A and B swab was unremarkable. That being said, the respiratory virus panel confirms that she has influenza A. This is likely an H1N1 virus. Respiratory culture is growing normal juan, but nothing else. That being said, there are many gram-positive cocci in clusters and pairs and many gram-positive rods present. ASSESSMENT: 1. Acute on chronic hypoxic respiratory failure. 2. Interstitial lung disease, secondary to systemic lupus erythematosus, currently quiescent. 3. Chronic immunosuppression. 4. Community-acquired pneumonia, secondary to influenza. 5. Herpes zoster rash on the buttock. DISCUSSION AND PLAN: The patient is doing fine from respiratory standpoint. This virus is going to take 7 to 10 days to run its course. We have initiated her on Tamiflu. Pulmonary Critical Care will continue to follow along while she remains in-house. Job ID: [id number]
--- NOTE | 2018-08-11 10:59 | PDOC.PN ---
- Subjective Encounter Start Date: 08/11/18 Encounter Start Time: 11:04 Subjective: still sob with exertion. back pain - Objective Vital Signs & Weight: Vital Signs (12 hours) Temp Pulse Resp BP Pulse Ox 08/11/18 08:24 60 18 99 08/11/18 08:01 98.1 F 55 L 16 137/68 99 Weight Admit Weight 218 lb Weight 218 lb I&O: 08/10/18 08/11/18 08/12/18 06:59 06:59 06:59 Intake Total 2920 2650 Output Total 450 Balance 2920 2200 Result Diagrams: 08/09/18 03:00 08/09/18 03:00 Phys Exam - Physical Examination Neck: no JVD diffuse rales bilat Cardiovascular: RRR, no significant murmur Gastrointestinal: soft, positive bowel sounds Musculoskeletal: edema present Dx/Plan (1) Acute and chronic respiratory failure with hypoxia Code(s): J96.21 - ACUTE AND CHRONIC RESPIRATORY FAILURE WITH HYPOXIA Status: Acute (2) SLE exacerbation Code(s): M32.9 - SYSTEMIC LUPUS ERYTHEMATOSUS, UNSPECIFIED Status: Chronic (3) Asthma Code(s): J45.909 - UNSPECIFIED ASTHMA, UNCOMPLICATED Status: Chronic Qualifiers: Asthma severity: unspecified severity Asthma persistence: unspecified (4) ILD (interstitial lung disease) Code(s): J84.9 - INTERSTITIAL PULMONARY DISEASE, UNSPECIFIED Status: Chronic Comment: With hypoxemia. Pulmonary consulted. (5) Lupus (systemic lupus erythematosus) Code(s): M32.9 - SYSTEMIC LUPUS ERYTHEMATOSUS, UNSPECIFIED Status: Chronic Qualifiers: Systemic lupus erythematosus type: unspecified Systemic lupus erythematosus organ involvement: other Qualified Code(s): M32.19 - Other organ or system involvement in systemic lupus erythematosus (6) Influenza A Code(s): J10.1 - FLU DUE TO OTH IDENT INFLUENZA VIRUS W OTH RESP MANIFEST Status: Acute - Plan cont iv antibx -: po tamiflu. cont nebs, prednisone, plaquenil -: selected home meds * .
[2018-08-11] MEDS: Benzonatate 100 MG CAP PO PRN ×2 (12:01→20:05)
[2018-08-11] MEDS: Acetaminophen/Codeine 30-300mg Tablet PO PRN ×2 (12:01→16:43)
[2018-08-11] MEDS: Azithromycin 500 MG in Sodium Chloride 0.9% 250 ML 250 ML IVPB SCH (12:02)
[2018-08-11] MEDS: cefTRIAXone\\ROCEPHIN 1 GM in Sodium Chloride 0.9% 100 ML IVPB SCH (12:02)
[2018-08-11] MEDS: Morphine 4 MG/ML VIAL SLOW IVP PRN ×2 (14:08→20:05)
[2018-08-11] MEDS: Gabapentin 300 MG CAP PO SCH ×2 (14:22→19:59)
[2018-08-11] MEDS: predniSONE 20 MG TAB PO SCH (19:59)
[2018-08-12] MEDS: Acyclovir Sodium 650 MG in Sodium Chloride 0.9% 100 ML IVPB SCH ×3 (03:42→19:59)
[2018-08-12] MEDS: tiZANidine HCl 4 MG TAB PO PRN ×3 (04:27→20:00)
[2018-08-12] MEDS: Acetaminophen/Codeine 30-300mg Tablet PO PRN ×3 (04:27→20:00)
[2018-08-12] MEDS: Enoxaparin Sodium 40 MG/0.4 ML SYRINGE SC SCH (09:21)
[2018-08-12] MEDS: Morphine 4 MG/ML VIAL SLOW IVP PRN (09:21)
[2018-08-12] MEDS: Hydroxychloroquine Sulfate 200 MG TAB PO SCH ×2 (09:22→20:01)
[2018-08-12] MEDS: Oseltamivir 75 MG CAP PO SCH ×2 (09:22→20:01)
[2018-08-12] MEDS: Gabapentin 300 MG CAP PO SCH ×3 (09:22→20:01)
[2018-08-12] MEDS: Metoprolol Tartrate 25 MG TAB PO SCH ×2 (09:22→20:01)
[2018-08-12] MEDS: Mycophenolate 250 MG CAP PO SCH ×2 (09:23→20:01)
--- NOTE | 2018-08-12 10:17 | PDOC.PN ---
- Subjective Encounter Start Date: 08/12/18 Encounter Start Time: 10:15 Subjective: non-productive cough, SHEN - Objective MAR Reviewed: Yes Vital Signs & Weight: Vital Signs (12 hours) Temp Pulse Resp BP Pulse Ox 08/12/18 07:28 97.5 F L 79 20 160/99 H 98 Weight Admit Weight 218 lb Weight 218 lb I&O: 08/11/18 08/12/18 08/13/18 06:59 06:59 06:59 Intake Total 2650 2180 Output Total 450 Balance 2200 2180 Result Diagrams: 08/09/18 03:00 08/09/18 03:00 Phys Exam - Physical Examination Neck: no JVD diffuse fine rales Cardiovascular: RRR, no significant murmur Gastrointestinal: soft, positive bowel sounds Musculoskeletal: no edema Dx/Plan (1) Acute and chronic respiratory failure with hypoxia Code(s): J96.21 - ACUTE AND CHRONIC RESPIRATORY FAILURE WITH HYPOXIA Status: Acute (2) SLE exacerbation Code(s): M32.9 - SYSTEMIC LUPUS ERYTHEMATOSUS, UNSPECIFIED Status: Chronic (3) Asthma Code(s): J45.909 - UNSPECIFIED ASTHMA, UNCOMPLICATED Status: Chronic Qualifiers: Asthma severity: unspecified severity Asthma persistence: unspecified (4) ILD (interstitial lung disease) Code(s): J84.9 - INTERSTITIAL PULMONARY DISEASE, UNSPECIFIED Status: Chronic Comment: With hypoxemia. Pulmonary consulted. (5) Lupus (systemic lupus erythematosus) Code(s): M32.9 - SYSTEMIC LUPUS ERYTHEMATOSUS, UNSPECIFIED Status: Chronic Qualifiers: Systemic lupus erythematosus type: unspecified Systemic lupus erythematosus organ involvement: other Qualified Code(s): M32.19 - Other organ or system involvement in systemic lupus erythematosus (6) Influenza A Code(s): J10.1 - FLU DUE TO OTH IDENT INFLUENZA VIRUS W OTH RESP MANIFEST Status: Acute - Plan cont iv antibx, tamiflu -: cont steroids, nebs, O2 * .
[2018-08-12] MEDS: Azithromycin 500 MG in Sodium Chloride 0.9% 250 ML 250 ML IVPB SCH (10:44)
[2018-08-12] MEDS: cefTRIAXone\\ROCEPHIN 1 GM in Sodium Chloride 0.9% 100 ML IVPB SCH (12:08)
[2018-08-12] MEDS: predniSONE 20 MG TAB PO SCH (20:01)
[2018-08-13] MEDS: Acetaminophen/Codeine 30-300mg Tablet PO PRN (03:15)
[2018-08-13] MEDS: Acyclovir Sodium 650 MG in Sodium Chloride 0.9% 100 ML IVPB SCH ×2 (03:15→11:17)
[2018-08-13] MEDS ORDERED: Azithromycin 250 MG TAB PO SCH (09:00)
[2018-08-13] MEDS: Morphine 4 MG/ML VIAL SLOW IVP PRN (09:34)
[2018-08-13] MEDS: Hydroxychloroquine Sulfate 200 MG TAB PO SCH (09:38)
[2018-08-13] MEDS: Metoprolol Tartrate 25 MG TAB PO SCH (09:38)
[2018-08-13] MEDS: Gabapentin 300 MG CAP PO SCH ×2 (09:38→16:35)
[2018-08-13] MEDS: Oseltamivir 75 MG CAP PO SCH (09:38)
[2018-08-13] MEDS: Mycophenolate 250 MG CAP PO SCH (09:38)
[2018-08-13] MEDS: Enoxaparin Sodium 40 MG/0.4 ML SYRINGE SC SCH (09:38)
--- NOTE | 2018-08-13 09:40 | PDOC.PN ---
- Subjective Encounter Start Date: 08/13/18 Encounter Start Time: 09:38 Subjective: no fever, chills - Objective MAR Reviewed: Yes Vital Signs & Weight: Vital Signs (12 hours) Temp Pulse Resp BP Pulse Ox 08/13/18 07:32 98.0 F 84 16 139/92 H 99 Weight Admit Weight 218 lb Weight 218 lb I&O: 08/12/18 08/13/18 08/14/18 06:59 06:59 06:59 Intake Total 2180 750 Balance 2180 750 Result Diagrams: 08/09/18 03:00 08/09/18 03:00 Phys Exam - Physical Examination Neck: no JVD bilat fine rales Cardiovascular: RRR, no significant murmur Gastrointestinal: soft, positive bowel sounds Musculoskeletal: no edema Dx/Plan (1) Acute and chronic respiratory failure with hypoxia Code(s): J96.21 - ACUTE AND CHRONIC RESPIRATORY FAILURE WITH HYPOXIA Status: Acute (2) SLE exacerbation Code(s): M32.9 - SYSTEMIC LUPUS ERYTHEMATOSUS, UNSPECIFIED Status: Chronic (3) Asthma Code(s): J45.909 - UNSPECIFIED ASTHMA, UNCOMPLICATED Status: Chronic Qualifiers: Asthma severity: unspecified severity Asthma persistence: unspecified (4) ILD (interstitial lung disease) Code(s): J84.9 - INTERSTITIAL PULMONARY DISEASE, UNSPECIFIED Status: Chronic Comment: With hypoxemia. Pulmonary consulted. (5) Lupus (systemic lupus erythematosus) Code(s): M32.9 - SYSTEMIC LUPUS ERYTHEMATOSUS, UNSPECIFIED Status: Chronic Qualifiers: Systemic lupus erythematosus type: unspecified Systemic lupus erythematosus organ involvement: other Qualified Code(s): M32.19 - Other organ or system involvement in systemic lupus erythematosus (6) Influenza A Code(s): J10.1 - FLU DUE TO OTH IDENT INFLUENZA VIRUS W OTH RESP MANIFEST Status: Acute - Plan cont antibx, tamiflu -: cont prednisone, nebs -: check RA oximrtry -: home 1-2 days * .
[2018-08-13] MEDS: cefTRIAXone\\ROCEPHIN 1 GM in Sodium Chloride 0.9% 100 ML IVPB SCH (11:17)
--- NOTE | 2018-08-13 16:56 | DIS ---
DATE OF ADMISSION: 08/08/2018 DATE OF DISCHARGE: 08/13/2018 DISPOSITION: Discharged home. PRIMARY CARE PROVIDER: Addi Lancaster. FINAL DIAGNOSES: Pneumonia, influenza type A, systemic lupus erythematosus, interstitial lung disease, and perianal ulcer. DISCHARGE MEDICATIONS: 1. Prednisone 40 mg a day. 2. CellCept 1500 mg a day. 3. Protonix 40 mg a day. 4. Metoprolol 25 mg twice a day. 5. Combivent 2 puffs q.i.d. 6. Plaquenil 200 mg b.i.d. 7. Gabapentin 300 mg t.i.d. 8. Advair Diskus 250/50 one inhalation twice a day. 9. Zanaflex 4 mg t.i.d. p.r.n. 10. Omnicef 600 mg a day for 5 days. 11. Zithromax 500 mg p.o. daily x5 day. ALLERGIES: NO KNOWN DRUG ALLERGIES. DIET: Regular. CODE STATUS: Full. PENDING AT TIME OF DISCHARGE: Nothing. HOSPITAL COURSE: The patient was admitted to [facility] through [facility] with pneumonia, influenza A. She was placed on Rocephin and Zithromax. She was seen in consultation by Dr. Mraiano Galvan. The patient's initial chest x-ray revealed hazy diaphragms, left lower lobe infiltrate, some interstitial changes. Blood cultures were negative. Initial white cell count was 14.8, dropped down to 8.9; hemoglobin 14.7 and 13.1; platelet count 262,000 and 156,000. Comp metabolic profile normal except for a blood sugar of 114. She improved steadily during her hospital stay. Today, I was discussing discharge today or tomorrow with her. Dr. Galvan came by, spoke with her. She is agreeable with discharge today. She is afebrile. Lungs revealed fine rales. Breath sounds are improved. She has oxygen at home and she is O2 dependent at night. She is currently on O2, 24 hours a day here. She will be monitoring herself at home. She is to follow up with her primary care provider in one week. No procedures were done. Job ID: [id number]
--- NOTE | 2018-08-13 17:03 | PRG ---
DATE OF SERVICE: 08/13/2018 SERVICE: Pulmonary Medicine. INTERVAL HISTORY: The patient is actually feeling quite a bit better. She is still coughing. She is bringing up a little bit of sputum, but this is settling down significantly. She denies any current chest pain, fevers, or chills. Otherwise, there are no overnight events. She has gotten to the point where she feels comfortable going home. She would like to be converted over to p.o. medications and continue this thing at home. She is able to take a shower today. She did not have any severe dyspnea that limited that activity. PHYSICAL EXAMINATION: VITAL SIGNS: Afebrile, pulse 84, blood pressure 139/92, respirations 16, and saturation 99% on 4 L nasal cannula. GENERAL: The patient is awake and alert, in no apparent distress. LUNGS: Decent air entry. Crackles are present. There is rhonchi that clear with cough. There is no prolonged expiratory phase or wheezing. HEART: Normal rate, regular. ABDOMEN: Soft, nontender, and nondistended. Bowel sounds are positive. MUSCULOSKELETAL: No cyanosis or clubbing. There is no pitting in the bilateral lower extremities. NEUROLOGIC: Grossly nonfocal. LABORATORY DATA: Basic metabolic profile is essentially unremarkable. Respiratory virus panel is positive for influenza A. DISCUSSION AND PLAN: The patient is doing really well from a respiratory standpoint. At this point, she can be converted over to p.o. medications and discharged from the hospital. I will continue to follow her up in the outpatient setting. She needs to resume her medications aimed at lupus and interstitial lung disease on discharge from the hospital. ASSESSMENT: 1. Acute on chronic hypoxic respiratory failure, returned to baseline. 2. Interstitial lung disease secondary to systemic lupus erythematosus, currently quiescent. 3. Community-acquired pneumonia secondary to influenza. 4. Herpes zoster infection on the buttock. 5. Chronic immunosuppression. Job ID: [id number]
[2018-08-13 18:58] VITALS: BP 133/94; TEMP 97.9
== END 2018-08-13 18:58 | disposition home or self-care (01) | DRG 193 ==
LOC: ERS 10:20 → T4-A 12:30
PROVIDERS: ADMIT Hospitalist; ATTEND Hospitalist
DX: J10.00 Influenza due to other identified influenza virus with unspecified type of pneumonia (principal); J96.21 Acute and chronic respiratory failure with hypoxia; J84.9 Interstitial pulmonary disease, unspecified; B02.8 Zoster with other complications; M32.13 Lung involvement in systemic lupus erythematosus; E66.9 Obesity, unspecified; Z68.34 Body mass index [BMI] 34.0-34.9, adult; J45.909 Unspecified asthma, uncomplicated; L98.499 Non-pressure chronic ulcer of skin of other sites with unspecified severity; F32.9 Major depressive disorder, single episode, unspecified; Z79.899 Other long term (current) drug therapy
CPT/HCPCS: 36415; 71045; 80048; 80053; 83605; 85025; 87040; 87070; 87205; 87633; 87798; 87804; 89220; 93005; 94640; 96361; 96365; 96367; J0133; J0456; J0696; J1650; J2270; J2405; J7050; J7506; J7517; J7620